=== PATIENT | female | born 1975 | race Caucasian/White ===

== ENCOUNTER → 2021-03-28 04:57 | Outpatient (CLI) | payer OTHER, SELFPAY ==
[2021-03-28 18:47] LABS: SARS-CoV-2 RNA PCR Negative
== END ==
PROVIDERS: PCP Family Medicine; Visit Provider Obstetrics & Gynecology Gynecology
DX: Z01.812 Encounter for preprocedural laboratory examination (principal); Z20.822 Contact with and (suspected) exposure to COVID-19
CPT/HCPCS: C9803; U0003; U0005

== ENCOUNTER 2021-03-31 01:12 | Day surgery (SDC) | payer OTHER, SELFPAY ==
[2021-03-18 13:13] VITALS: BMI 26.6
--- NOTE | 2021-03-28 16:05 | WPDANESEPPF ---
Anes - Initial Pre Proc Eval Procedure: Operation Date: 03/31/21 10:00 Proposed Procedures p Hysteroscopy, Dilation and Curettage - Hawa Dunne MD Date/Time: 03/28/21 16:05 Surgeon: Hawa Dunne MD Pre Op Diagnosis: abn uterine bleeding Patient Data Age: 46 Gender: F Height: 1.65 m Weight: 72.57 kg Allergies Allergy/AdvReac Type Severity Reaction Status Date / Time codeine Allergy Mild Nausea Verified 03/31/21 09:09 Sulfa (Sulfonamide Allergy Mild Unknown Verified 03/31/21 09:09 Antibiotics) Home Medications Medication Instructions Recorded Confirmed Type Lactobacillus acidophilus 10,000 mmu cells PO DAILY 03/18/21 03/18/21 History [Probiotic] ergocalciferol (vitamin D2) 1,250 mcg PO [id number] 03/18/21 03/18/21 History [Vitamin D2] fiber 1 tablet PO DAILY 03/18/21 03/18/21 History rxczuaoajayy-reeb-oyegn acid 1 tablet PO DAILY 03/18/21 03/18/21 History [Centrum Complete] Patient hx anesthesia problems: none Family hx anesthesia problems: none [facility] Past Medical History Medical History (Updated 03/31/21 @ 07:10 by Hawa Dunne MD) Abnormal uterine bleeding Back pain Elevated cholesterol Migraine (normal spontaneous vaginal delivery) x2 Thyroid nodule biopsy 2014 [facility] Social History Social History Smoking status: Never smoker Alcohol intake: never Substance use: never Substance use type: does not use Living arrangements: alone Spiritual care concerns: No Anes - Eval Final PreProcedure Day of Procedure 03/28/21 16:05 Patient weight: overweight Heart: regular rate and rhythm Lungs: clear to auscultation and normal air movement Airway: Mallampati scale class II Neurological: alert and oriented Last oral intake: >/= 8 hours ASA classification: II Emergent: no Anesthetic plan: proceed Anesthesia type and monitoring: general GIVS and LMA Informed Consent: The patient's anesthetic plan and its attendant risks and benefits were discussed with the patient/family/POA. Questions were solicited and answers provided to the satisfaction of the patient/family/POA.
--- NOTE | 2021-03-31 07:07 | P.HP_ITS ---
History of Present Illness History of Present Illness Consent: Risks, benefits, and alternatives have been discussed and questions answered. Patient agrees to proceed with procedure. Chief complaint: abn uterine bleeding Narrative: Hilda Pollack is a 46 year old female with new onset of irregular bleeding. Patient has been bleeding to on and off since December. Pelvic ultrasound was normal. It was recommended to proceed with workup of the endometrium. Risks of infection, bleeding, and perforation were reviewed. Patient agrees to proceed with hysteroscopy D&C. Review of Systems Review of Systems: Narrative: not repeated day of surgery; patient states no changes in status [facility] Past Medical History Medical History (Updated 03/31/21 @ 07:10 by Hawa Dunne MD) Abnormal uterine bleeding Back pain Elevated cholesterol Migraine (normal spontaneous vaginal delivery) x2 Thyroid nodule biopsy 2014 [facility] Social History Social History Smoking status: Never smoker Alcohol intake: never Substance use: never Substance use type: does not use Living arrangements: alone Spiritual care concerns: No Meds Home Medications and Allergies Home Medications Medication Instructions Recorded Confirmed Type Lactobacillus acidophilus 10,000 mmu cells PO DAILY 03/18/21 03/18/21 History [Probiotic] ergocalciferol (vitamin D2) 1,250 mcg PO [id number] 03/18/21 03/18/21 History [Vitamin D2] fiber 1 tablet PO DAILY 03/18/21 03/18/21 History hhmwwjtafiee-jreo-uszqw acid 1 tablet PO DAILY 03/18/21 03/18/21 History [Centrum Complete] Allergies Allergy/AdvReac Type Severity Reaction Status Date / Time codeine Allergy Mild Nausea Unverified 03/18/21 13:11 Sulfa (Sulfonamide Allergy Mild Unknown Unverified 03/18/21 13:11 Antibiotics) Exam : External Female Exam: normal external appearance Speculum Exam - Vagina: normal appearance of the vagina Speculum Exam - Cervix: normal appearance of the cervix Bimanual exam- vagina & uterus: normal bimanual exam and uterine size normal Bimanual Exam- Adnexa, other: normal adnexae Assessment and Plan Assessment and plan (1) Menorrhagia: Code(s): N92.0 - Excessive and frequent menstruation with regular cycle Status: Acute Assessment and Plan: Plan is to proceed with hysteroscopy D&C.
--- NOTE | 2021-03-31 07:07 | WPDHPUPDATE1 ---
History and Physical Update Update Date/Time: 03/31/21 07:07 History and Physical has been reviewed, including an updated exam of the patient. There are NO changes in the patient's condition. Risks, benefits, and alternatives have been discussed and questions answered. Patient agrees to proceed with procedure.
[2021-03-31 09:09] VITALS: BP 100/40; PULSE 70; RESP 14; TEMP 36.3; O2SAT 100; BMI 26.4
[2021-03-31] MEDS: ACETAMINOPHEN 500 MG TABLET 1000 MG PO (09:18)
[2021-03-31] MEDS: LACTATED RINGERS 1,000 ML 30 ML IV CONT (09:18)
--- NOTE | 2021-03-31 10:25 | W.PM.PROC2 ---
Procedure Note - Detailed Date of Procedure 03/31/21 Pre-op Diagnosis abn uterine bleeding Post-op Diagnosis same Procedure Performed D and C hysteroscopy with MyoSure resection of polyp and thickened tissue Surgeon Hawa Dunne MD Anesthesia MAC and local Findings Uterus sounds to 8cm; there is a generalized thickened appearance to the endometrium; there is a large polyp on the right sidewall Description of Procedure The patient was taken to the operating room and placed under anesthesia in the dorsal lithotomy position. She is prepped and draped in the usual sterile fashion. [place] speculum was placed in the vagina and the cervix is grasped on the anterior lip with a tenaculum. The cervix was injected with 1% lidocaine in each quadrant. The uterus is sounded to 8cm. The cervix is serially dilated with [place]. The diagnostic hysteroscope was placed with the stated findings. Due to the difficulty visualizing decision was made to proceed with MyoSure resection as the endometrium was very thickened and it is hard to visualize. The MyoSure device is used to directly removed the thickened endometrium as the thickened endometrium is removed a large polyp was noted on the right fundus. This was removed in its entirety. The MyoSure device is removed and the medium sharp curette is used to sharply curette the remainder of the endometrium. Large amounts material art obtained consistent with the visual appearance. All instruments are removed. Sponge, needle, and instrument counts are correct per the OR staff. The patient is awakened from anesthesia and taken to the recovery room in stable condition. Estimated Blood Loss 5 Drains No Packing No Pathology yes (Endometrial shavings and curettings) Complications No immediate complications Condition stable Disposition PACU
[2021-03-31 10:30] VITALS: BP 105/50; PULSE 78; RESP 14; O2SAT 100
[2021-03-31 11:00] VITALS: BP 106/51; PULSE 69; RESP 14; O2SAT 100
[2021-03-31 11:30] VITALS: BP 106/61; PULSE 72; RESP 16
== END 2021-03-31 11:45 | disposition home or self-care (01) ==
PROVIDERS: PCP Family Medicine; Visit Provider Obstetrics & Gynecology Gynecology
PROC: 0U5B8ZZ Destruction of Endometrium, Via Natural or Artificial Opening Endoscopic (ICD-10-PCS; CPT 58563; principal; 2021-03-31 10:00)
DX: N92.0 Excessive and frequent menstruation with regular cycle (principal); N84.0 Polyp of corpus uteri
CPT/HCPCS: 58558; 88305; A9270; J1100; J1885; J2250; J2405; J2704; J3010; J7030; J7120

== ENCOUNTER 2021-04-06 18:39 | Emergency (ER) | payer OTHER, SELFPAY ==
--- NOTE | ~2021-04-06 | XR_ITS ---
EXAMINATION: XR wrist RT min 3V DATE: 04/06/2021 19:02 INDICATION: Right wrist pain. TECHNIQUE: 4 views of right wrist were obtained. COMPARISON: None. FINDINGS: Bone alignment is normal. No fracture. Joint spaces are well maintained. IMPRESSION: 1. Normal right wrist. Reviewed, dictated and finalized at location A. IMPRESSION: 1. Normal right wrist.
[2021-04-06 18:48] VITALS: BP 93/43; PULSE 80; RESP 16; TEMP 36.7; O2SAT 99
--- NOTE | 2021-04-06 19:01 | ED.GENADULT ---
HPI - General Adult General Chief complaint: Extremity Problem,Nontraumatic Stated complaint: Right wrist pain Source: patient Mode of arrival: ambulatory Limitations: no limitations History of Present Illness HPI narrative: Patient presents for evaluation of right wrist pain for the last 5 days. She cannot identify any precipitating cause or injury. She was driving when she felt a sharp twinge of pain in the lateral aspect of the right wrist. She states the pain has been constant since that time. She has a dull aching pain in the lateral aspect of the right wrist with intermittent episodes of sharp pain shooting from the right wrist to the right elbow. She states that pronation and supination causes worsening of the pain. She is able to perform full range of motion but states that is quite painful. She states she self diagnosed tendinitis in the third digit of the left hand. Reports some swelling in the affected wrist. She is right-hand dominant. She tried taking [id number]-mnt-nvssdzj NSAIDs for pain which seemed to help somewhat. She has some numbness and tingling in the fourth and fifth digit of the right hand. She believes her mother has a history of rheumatoid arthritis. Related Data Home Medications Medication Instructions Recorded Confirmed Lactobacillus acidophilus 10,000 mmu cells PO DAILY 03/18/21 04/06/21 [Probiotic] ergocalciferol (vitamin D2) 1,250 mcg PO WEEKLY 03/18/21 04/06/21 [Vitamin D2] fiber 1 tablet PO DAILY 03/18/21 04/06/21 cfwnonhhvlpj-rvsh-zyqzn acid 1 tablet PO DAILY 03/18/21 04/06/21 [Centrum Complete] ferrous sulfate [FeroSul] 325 mg PO DAILY 04/06/21 04/06/21 Allergies Allergy/AdvReac Type Severity Reaction Status Date / Time codeine Allergy Mild Nausea Verified 04/06/21 18:56 Sulfa (Sulfonamide Allergy Mild Unknown Verified 04/06/21 18:56 Antibiotics) Review of Systems Review of Systems: Narrative: CONSTITUTIONAL: Denies fever, chills, or sweats. EYES: Denies visual changes, redness, or discharge. ENT: Denies rhinorrhea, congestion, sore throat, or otalgia. CARDIOVASCULAR: Denies chest pain, palpitations, or edema. RESPIRATORY: Denies cough or dyspnea. GASTROINTESTINAL: Denies abdominal pain, nausea, vomiting, or diarrhea. GENITOURINARY: Denies dysuria or hematuria. SKIN: Denies rash or itching. MUSCULOSKELETAL: Reports pain in the right wrist, shooting into the right elbow NEUROLOGIC: Reports numbness and tingling in the fourth and fifth digits of the right hand. Denies headache, dizziness, or weakness. PSYCHIATRIC: Denies anxiety or depression. [facility] Past Medical History Medical History (Updated 04/06/21 @ 19:17 by AMAYA Cano, ) Abnormal uterine bleeding Back pain Elevated cholesterol Migraine (normal spontaneous vaginal delivery) x2 Thyroid nodule biopsy 2014 [facility] Surgical History Surgical History (Updated 04/06/21 @ 19:03 by AMAYA Cano, ) H/O removal of cyst Family History Family History (Updated 04/06/21 @ 19:04 by AMAYA Cano, ) Father Diabetes mellitus Mother Diabetes mellitus Social History Social History Smoking status: Never smoker Alcohol intake: never Substance use: never Substance use type: does not use Living arrangements: alone Gender identity (if verbalized by the patient): Female Spiritual care concerns: No Exam Narrative: Exam Narrative: GENERAL: Well-appearing, well-nourished, and in no acute distress. HEAD: Normocephalic, atraumatic. EYES: PERRLA and EOMI. ENT: Nares clear, no rhinorrhea or epistaxis. Mucous membranes moist. Oropharynx without tonsillar hypertrophy exudate or other lesions. Bilateral TMs pearly bermudez nonbulging NECK: Supple. No adenopathy or masses. No carotid bruits or JVD CHEST: Clear to auscultation. No respiratory distress. No wheezes rales or rhonchi HEART: Regular rate and rhythm.
== END 2021-04-06 19:25 | disposition home or self-care (01) ==
PROVIDERS: Emergency Provider Nurse Practitioner; PCP Family Medicine
DX: M77.8 Other enthesopathies, not elsewhere classified (principal); E78.00 Pure hypercholesterolemia, unspecified
CPT/HCPCS: 73110; 99213; G0463

== ENCOUNTER 2022-07-22 12:38 | Emergency (ER) | payer OTHER, SELFPAY ==
[2022-07-22 12:54] VITALS: PULSE 89; RESP 18; TEMP 37.2; O2SAT 100
--- NOTE | 2022-07-22 13:14 | ED.URI ---
HPI - URI/Sore Throat General Chief Complaint: Upper Respiratory Infection Stated Complaint: Sore Throat Time Seen by Provider: 07/22/22 13:14 History of Present Illness HPI Narrative: 47-year-old female presented for complaint of sore throat for 3 days. Endorses pain with swallowing radiating up to ears. She denies difficulty swallowing her secretions. She denies headache, nausea, vomiting, fevers or chills. She endorses sick contacts have had sore throats over the past 2 weeks. She is taking ibuprofen for symptoms. Related Data Home Medications Medication Instructions Recorded Confirmed Lactobacillus acidophilus 10 10,000 mmu cells PO DAILY 03/18/21 07/22/22 billion cell capsule (Probiotic) ergocalciferol (vitamin D2) 1,250 1,250 mcg PO WEEKLY 03/18/21 07/22/22 mcg (50,000 unit) capsule (Vitamin D2) fiber 1 tablet PO DAILY 03/18/21 07/22/22 multivitamin-ferrous 1 tablet PO DAILY 03/18/21 07/22/22 fumarate-folic acid 18 mg-400 mcg tablet (Centrum Complete) ferrous sulfate 325 mg (65 mg 325 mg PO DAILY 04/06/21 07/22/22 iron) tablet (FeroSul) Allergies Allergy/AdvReac Type Severity Reaction Status Date / Time codeine Allergy Mild Nausea Verified 07/22/22 12:43 Sulfa (Sulfonamide Allergy Mild Unknown Verified 07/22/22 12:43 Antibiotics) Review of Systems Review of Systems: CONSTITUTIONAL: Denies body aches, fever, chills, or sweats. EYES: Denies visual changes, redness, or discharge. ENT: Denies rhinorrhea, congestion, or otalgia. CARDIOVASCULAR: Denies chest pain, palpitations, or edema. RESPIRATORY: Denies dyspnea. GASTROINTESTINAL: Denies abdominal pain, nausea, vomiting, or diarrhea. SKIN: Denies rash, or wounds. MUSCULOSKELETAL: Denies back pain, joint pain, or myalgia. NEUROLOGIC: Denies headache PMF Past Medical History Medical History Abnormal uterine bleeding Back pain Elevated cholesterol Migraine (normal spontaneous vaginal delivery) x2 Thyroid nodule biopsy 2014 [facility] Surgical History Surgical History H/O removal of cyst Family History Family History Father Diabetes mellitus Mother Diabetes mellitus Social History Social History Smoking status: Never smoker Alcohol intake: never Substance use: never Substance use type: does not use Gender identity (if verbalized by the patient): Female Spiritual care concerns: No Exam Narrative: GENERAL: Ill-appearing, nontoxic EYES: conjunctivae clear ENT: Mucous membranes moist. TMs pearly bermudez with normal light reflex bilaterally; no tragal tenderness. Oropharynx erythematous without lesions.No drooling, no hoarseness, no trismus, uvula midline. No tripod positioning, hot potato voice, or soft palate swelling. NECK: Supple. anterior cervical lymphadenopathy CHEST: Clear to auscultation, breath sounds equal. HEART: Regular rate and rhythm. No murmur heard. SKIN: Warm, dry, no rash. Course Course Emergency Course: Patient is aware of diagnosis, understands and agrees to treatment plan. Anticipatory guidance given. Patient agrees to follow-up as directed and is aware of reasons to seek care at the emergency department. Portions of this record may have been created with voice recognition software Level of Care: Express Care Visit Vital Signs Vital signs: Vital Signs Temperature 98.9 F 07/22/22 12:54 Pulse Rate 89 07/22/22 12:54 Respiratory Rate 18 07/22/22 12:54 Pulse Oximetry 100 07/22/22 12:54 Oxygen Delivery Room Air 07/22/22 12:54 Temperature 98.9 F 07/22/22 12:54 Pulse Rate 89 07/22/22 12:54 Respiratory Rate 18 07/22/22 12:54 Pulse Oximetry 100 07/22/22 12:54 Oxygen Delivery Room Air 07/22/22 12:54 MDM
== END 2022-07-22 13:51 | disposition home or self-care (01) ==
PROVIDERS: Emergency Provider Nurse Practitioner Family; PCP Family Medicine
DX: J02.9 Acute pharyngitis, unspecified (principal); Z20.822 Contact with and (suspected) exposure to COVID-19; E78.00 Pure hypercholesterolemia, unspecified
CPT/HCPCS: 87081; 87426; 87804; 87880; 99213; C9803; G0463

== ENCOUNTER 2023-04-01 18:49 | Emergency (ER) | payer OTHER, SELFPAY ==
--- NOTE | ~2023-04-01 | XR_ITS ---
EXAM: XR knee LT min 4V DATE: 04/01/2023 19:13 HISTORY: injury, pain medial left knee . COMPARISON: None available. FINDINGS: Normal mineralization. No fracture or dislocation. No lytic or blastic lesion. Joint space s are maintained. No erosion or periosteal change. Soft tissues within normal limits. IMPRESSION: No acute osseous finding in the left knee. Reviewed, dictated and finalized at location K.
--- NOTE | 2023-04-01 18:51 | ED.LOWEXIN ---
HPI - Extremity Injury (Lower) General Chief Complaint: Extremity Injury, Lower Stated Complaint: Injured left knee Time Seen by Provider: 04/01/23 18:51 Source: patient Mode of arrival: ambulatory Limitations: no limitations History of Present Illness HPI Narrative: Hilda is a 48-year-old female patient presenting to clinic today with complaints of left knee pain/injury. She reports she was climbing a metal ladder at [employer] 2 days ago and hit the left medial side of her knee. She reports pain with bending and extending her left knee as well as walking. Related Data Home Medications Medication Instructions Recorded Confirmed Lactobacillus acidophilus 10 10,000 mmu cells PO DAILY 03/18/21 04/01/23 billion cell capsule (Probiotic) ergocalciferol (vitamin D2) 1,250 1,250 mcg PO WEEKLY 03/18/21 04/01/23 mcg (50,000 unit) capsule (Vitamin D2) fiber 1 tablet PO DAILY 03/18/21 04/01/23 multivitamin-ferrous 1 tablet PO DAILY 03/18/21 04/01/23 fumarate-folic acid 18 mg-400 mcg tablet (Centrum Complete) ferrous sulfate 325 mg (65 mg 325 mg PO DAILY 04/06/21 04/01/23 iron) tablet (FeroSul) semaglutide 0.25 mg or 0.5 mg (2 0.5 mg subcut WEEKLY 04/01/23 04/01/23 mg/1.5 mL) subcutaneous pen injector Allergies Allergy/AdvReac Type Severity Reaction Status Date / Time codeine Allergy Mild Nausea Verified 04/01/23 18:59 Sulfa (Sulfonamide Allergy Unknown Unknown Verified 04/01/23 18:59 Antibiotics) Review of Systems Review of Systems: Pertinent positives per HPI. Patient denies any fever, chills, rash, headache, visual changes, dizziness, cough, runny nose, sore throat, shortness of breath, chest pain, palpitations, nausea, vomiting, diarrhea, constipation, abdominal pain, or any urinary issues. [facility] Past Medical History Medical History Abnormal uterine bleeding Back pain Elevated cholesterol Migraine (normal spontaneous vaginal delivery) x2 Thyroid nodule biopsy 2014 [facility] Surgical History Surgical History H/O removal of cyst Family History Family History Father Diabetes mellitus Mother Diabetes mellitus Social History Social History Smoking status: Never smoker Alcohol intake: never Substance use: never Substance use type: does not use Living arrangements: alone Gender identity (if verbalized by the patient): Female Spiritual care concerns: No Comments At the time of my signature, I reviewed and agree with the nursing past medical, surgical, social, and family history. There is no relevant family history pertinent to the patient complaint. Exam Narrative: General: Well-developed, well nourished, in no apparent distress Head: Normocephalic, atraumatic. Cardio: Regular rate and rhythm, s1 and s2 normal, no murmur appreciated. Resp: Clear to auscultation bilaterally, no rhonchi, rales, wheezing or rubs. Musculoskeletal: No deformity, tender to palpation over the medial aspect of the left knee, pain with flexion and extension of the left knee, no crepitus, grossly normal range of motion, muscle strength strong and equal, peripheral pulse strong, 1+ pitting edema in bilateral lower extremities, no cyanosis, normal gait and station Course Course Emergency Course: Portions of this record may have been created with voice recognition software. Level of Care: Express Care Visit Vital Signs Vital signs: Vital signs reviewed MDM - Extremity Injury (Lower) MDM Narrative Medical decision making narrative: At the time of visit patient is resting comfortably on the exam table. X-ray of the left knee was performed and is negative for any fracture or malalignment. I suspect the patient has left media
[2023-04-01 18:56] VITALS: BP 115/50; PULSE 92; RESP 16; TEMP 36.7; O2SAT 100
== END 2023-04-01 19:57 | disposition home or self-care (01) ==
PROVIDERS: Emergency Provider Nurse Practitioner Family; PCP Family Medicine
DX: M25.562 Pain in left knee (principal); E78.00 Pure hypercholesterolemia, unspecified
CPT/HCPCS: 73564; 99213; G0463

== ENCOUNTER 2024-10-30 00:18 | Day surgery (SDC) | payer OTHER, SELFPAY ==
--- NOTE | 2024-10-25 14:33 | PC.NURSE ---
Report to the Outpatient Waiting Room, entrance under the green pavilion located off [facility], at time 0600 on date 10/30/24. Planned Procedure Time: 0730.? Time changes happen often and if your time is changed the preop area will call you the afternoon before. - You and your visitor will be asked to self-screen and do not enter if you have any COVID symptoms. Please call surgeon if you need to reschedule. - A mask is optional within the hospital at this time. Patients may have clear liquids (water, carbonated beverages, clear teas, apple juice) until 3 hours prior to surgery with a maximum of 20 ounces. 0430 - No food from midnight until time of surgery and no smoking. This includes no chewing gum, candy or mints. - Infants may have breast milk until 4 hours before surgery, formula 6 hours prior to surgery. - Children will be allowed to drink immediately following surgery.? If applicable, please bring a bottle or sippy cup to assist with drinking. Juice, water, soda, and popsicles are readily available.? For infants on formula, please bring formula the day of surgery.? Pacifiers are allowed. Take only the following medications with a SIP of water on the morning of surgery: None DO NOT STOP ANY OF YOUR OTHER PRESCRIPTION MEDICATIONS PRIOR TO SURGERY EXCEPT THE FOLLOWING Medications to discontinue per physician Vitamins & Supplements hold for 3 days prior, last dose 10/27/24, Patient to ask Dr. Dunne regarding when to stop Meloxicam and Humira. (Last dose of Humira 10/24/24) Please no make-up, nail urdu, hairspray, perfume, deodorant, or body powder the day of surgery.? No jewelry (including any body piercings) or valuables the day of surgery, leave them at home.? Please take a shower or bath the night before, or the morning of, surgery with an antibacterial soap.? Wear comfortable, loose fitting clothing.? Children are encouraged to wear pajamas. - Jewelry must be removed prior to entering the operating room.? Rings and piercings that are not removed may be cut off. - The hospital will not accept responsibility for valuables.? - Please leave all valuables, including medications, at home the day of surgery. If you are going home after surgery, a licensed public transit bus driver must drive you home.? - NO public transportation without another adult if you receive anesthesia. - We recommend that an adult stay with you for 24 hours following discharge. - We also recommend that you do not drive, make important decision, drink alcoholic beverages, or take any drugs that were not prescribed by your health care provider for at least 24 hours after your discharge time. For Pediatric surgeries, we recommend two adults accompany the child home. Follow any additional instructions given to you from your surgeon. Telephone instructions given to Patient- Hilda Pollack and asked if any additional questions and then verbalized understanding. Patient advised to call surgeon office or pre surgery nurse liaison [phone] if any additional questions.
[2024-10-25 14:40] VITALS: BMI 29.9
--- NOTE | 2024-10-30 06:37 | P.PNAN_ITS ---
Anes - Initial Pre Proc Eval Procedure: Operation Date: 10/30/24 07:30 Proposed Procedures p Hysteroscopy Dilation and Curettage - Hawa Dunne MD Date/Time: 10/30/24 06:37 Surgeon: aHwa Dunne MD Pre Op Diagnosis: abnormal uterine bleeding Patient Data Age: 49 Gender: F Height: 1.65 m Weight: 81.8 kg Allergies Allergy/AdvReac Type Severity Reaction Status Date / Time codeine Allergy Mild Nausea Verified 10/25/24 14:21 Sulfa (Sulfonamide Allergy Unknown Unknown Verified 10/25/24 14:21 Antibiotics) Home Medications ?Medication ?Instructions ?Recorded ?Confirmed ?Type Lactobacillus acidophilus 10 10,000 mmu cells PO DAILY 03/18/21 10/25/24 History billion cell capsule (Probiotic) ergocalciferol (vitamin D2) 1,250 1,250 mcg PO .COMPLEX 03/18/21 10/25/24 History mcg (50,000 unit) capsule (Vitamin D2) fiber 1 tablet PO DAILY 03/18/21 10/25/24 History multivitamin-ferrous 1 tablet PO DAILY 03/18/21 10/25/24 History fumarate-folic acid 18 mg-400 mcg tablet (Centrum Complete) adalimumab 40 mg/0.4 mL 40 mg subcut .COMPLEX 10/25/24 10/25/24 History subcutaneous pen kit (Humira(CF) Pen) magnesium glycinate 100 mg (as 100 mg PO DAILY 10/25/24 10/25/24 History glycinate) tablet (Mag Glycinate) meloxicam 15 mg tablet 15 mg PO DAILY 10/25/24 10/25/24 History Patient hx anesthesia problems: none Family hx anesthesia problems: none Results Review: All pre-operative results and documents have been reviewed as part of the pre- operative evaluation. [facility] Past Medical History Medical History Abnormal uterine bleeding Back pain Elevated cholesterol Migraine (normal spontaneous vaginal delivery) x2 Thyroid nodule biopsy 2015 [facility] Surgical History Surgical History H/O removal of cyst Family History Family History Father Diabetes mellitus Mother Diabetes mellitus Social History Social History Smoking status: Never smoker Alcohol intake: never Substance use: never Substance use type: does not use Living arrangements: alone Gender identity (if verbalized by the patient): Female Spiritual care concerns: No Anes - Eval Final PreProcedure Day of Procedure 10/30/24 06:37 Patient weight: obese Heart: regular rate and rhythm Lungs: clear to auscultation Airway: Mallampati scale class II Neurological: alert and oriented Last oral intake: >/= 8 hours ASA classification: II Emergent: no Anesthetic plan: proceed Anesthesia type and monitoring: general GIVS and standard monitoring Results Review: All pre-operative results and documents have been reviewed as part of the pre- operative evaluation. Informed Consent: The patient's anesthetic plan and its attendant risks and benefits were discussed with the patient/family/POA. Questions were solicited and answers provided to the satisfaction of the patient/family/POA.
[2024-10-30 07:04] VITALS: BP 117/52; PULSE 77; TEMP 36.9; O2SAT 100; BMI 31.4
[2024-10-30] MEDS: ACETAMINOPHEN 500 MG TABLET 1000 MG PO (07:07)
[2024-10-30] MEDS: LACTATED RINGERS 1,000 ML 30 ML IV CONT (07:07)
[2024-10-30 07:08] LABS: BEDSIDEPREGUCG Negative (Negative)
--- NOTE | 2024-10-30 07:12 | P.HP_ITS ---
History of Present Illness History of Present Illness Consent: Risks, benefits, and alternatives have been discussed and questions answered. Patient agrees to proceed with procedure. Chief complaint: abnormal uterine bleeding Narrative: Hilda Pollack is a 49 year old female with irregular bleeding and occasional spotting after intercourse. Patient with a history endometrial polyps in 2020. Was recommended to undergo D&C hysteroscopy. Risks of infection, bleeding, perforation, and possible pathology are reviewed. Patient voices understanding and agrees to proceed. Review of Systems Review of Systems: not repeated day of surgery; patient states no changes in status PMFSH Past Medical History Medical History (Updated 10/30/24 @ 07:15 by Hawa Dunne MD) (normal spontaneous vaginal delivery) x2 Thyroid nodule biopsy 2014 [facility] Migraine Elevated cholesterol Surgical History Surgical History (Updated 10/30/24 @ 07:14 by Hawa Dunne MD) History of surgery on wrist X2 History of hysteroscopy 2020 with polyps H/O removal of cyst Family History Family History Father Diabetes mellitus Mother Diabetes mellitus Social History Social History Smoking status: Never smoker Alcohol intake: never Substance use: never Substance use type: does not use Living arrangements: alone Gender identity (if verbalized by the patient): Female Spiritual care concerns: No Meds Home Medications and Allergies Home Medications ?Medication ?Instructions ?Recorded ?Confirmed ?Type Lactobacillus acidophilus 10 10,000 mmu cells PO DAILY 03/18/21 10/25/24 History billion cell capsule (Probiotic) ergocalciferol (vitamin D2) 1,250 1,250 mcg PO .COMPLEX 03/18/21 10/25/24 History mcg (50,000 unit) capsule (Vitamin D2) fiber 1 tablet PO DAILY 03/18/21 10/25/24 History multivitamin-ferrous 1 tablet PO DAILY 03/18/21 10/25/24 History fumarate-folic acid 18 mg-400 mcg tablet (Centrum Complete) adalimumab 40 mg/0.4 mL 40 mg subcut .COMPLEX 10/25/24 10/25/24 History subcutaneous pen kit (Humira(CF) Pen) magnesium glycinate 100 mg (as 100 mg PO DAILY 10/25/24 10/25/24 History glycinate) tablet (Mag Glycinate) meloxicam 15 mg tablet 15 mg PO DAILY 10/25/24 10/25/24 History Allergies Allergy/AdvReac Type Severity Reaction Status Date / Time codeine Allergy Mild Nausea Verified 10/30/24 07:03 Sulfa (Sulfonamide Allergy Unknown Unknown Verified 10/30/24 07:03 Antibiotics) Vital Signs Vital Signs - 24 hr 10/30/24 07:04 Temperature 98.5 F Pulse Rate 77 Blood Pressure 117/52 L Pulse Oximetry 100 Oxygen Delivery Room Air Exam Const: General: healthy appearing and alert Orientation/consciousness: patient oriented x3 Resp: Effort & Inspection: normal respiratory effort GI: GI Palp: Yes Soft to palpation, No Tenderness to palpation present (GI) an d No Palpable mass present : External Female Exam: normal external appearance Speculum Exam - Vagina: normal appearance of the vagina and normal vaginal discharge Speculum Exam - Cervix: normal appearance of the cervix Bimanual exam- vagina & uterus: uterine size normal and consistency normal Bimanual Exam- Adnexa, other: normal adnexae and No adnexal tenderness Neuro: General: patient oriented x3 Assessment and Plan Assessment and plan (1) Menometrorrhagia: Code(s): N92.1 - Excessive and frequent menstruation with irregular cycle Status: Acute Assessment and Plan: Plan to proceed with D&C hysteroscopy
--- NOTE | 2024-10-30 07:12 | WPDHPUPDATE1 ---
History and Physical Update Update Date/Time: 10/30/24 07:12 History and Physical has been reviewed, including an updated exam of the patient. There are NO changes in the patient's condition. Risks, benefits, and alternatives have been discussed and questions answered. Patient agrees to proceed with procedure.
[2024-10-30 07:38] VITALS: BP 99/42; PULSE 69; RESP 20; O2SAT 97
--- NOTE | 2024-10-30 07:38 | W.PM.PROC2 ---
Procedure Note - Detailed Date of Procedure 10/30/24 Pre-op Diagnosis Menometrorrhagia Post-op Diagnosis Same Procedure Performed D&C hysteroscopy Surgeon Hawa Dunne MD Anesthesia MAC Findings Uterus sounds to 8cm and appears grossly. Description of Procedure The patient is taken the operating room and placed under anesthesia in the dorsal lithotomy position. She was prepped and draped in the usual sterile fashion. [place] speculum was placed in the vagina and the cervix grasped on the anterior lip with a tenaculum. Uterus is sounded to 8cm. The diagnostic hysteroscope was placed and with no abnormalities noted it is removed. The sharp OO curette is used to curette the endometrium until a good uterine cry was noted in all areas. All instruments are removed. Patient was awakened from anesthesia and taken to recovery in stable condition. Sponge, needle, and instrument counts are correct per the OR staff. Estimated Blood Loss 5 Drains No Packing No Pathology Yes (Endometrial curetting) Complications No immediate complications Condition Stable Disposition PACU
[2024-10-30 08:00] VITALS: BP 110/55; PULSE 62; RESP 20
[2024-10-30 08:30] VITALS: BP 108/58; PULSE 70; RESP 20
[2024-10-30 08:45] VITALS: BP 108/58; PULSE 69; RESP 20
--- OUTSIDE RECORDS SUMMARY | 2024-11-02 11:07 | XMS_ITS | Continuity of Care Document ---
Author Organization [facility] Address [address] [place] [address] Phone Care Team Providers Care Construction Rigger Name Role Phone Eugene OD, Mahin Unavailable Unavailable Procedures Procedure Date Eye Exam & Treatment Refraction Eye Exam, New Patient Advance Directives Directive Yes / No Effective Date File Name No Information Encounters Encounter Description Practice Location Reason(s) For Visit Diagnoses Date Provider Providers Copied on Encounter [facility], [address] [place] [address] [address], [place], [place], [id number], tel:[phone] [facility] No Information Sep-1 4-201 0 Eugene OD Mahin. [address] , [address], [place], [address], [place]. tel:[phone] [facility], [address] [place] [address] [address], [place], [place], [id number], tel:[phone] [facility] [place] No Information Sep-0 8-200 9 Eugene OD Mahin. [address] , [address], [place], [address], [place]. tel:[phone] Family History Family Member Type Diagnosis Age At Onset No Information Payers Payer name Insurance type Covered alliance party ID Authoriza tibill(s) Medicaid [facility] [id number] Social History Type Description Quantity Date Captured [...]
--- OUTSIDE RECORDS SUMMARY | 2024-11-02 11:07 | XMS_ITS | Patient Health Summary ---
Author Organization [facility] Address [address] [place] [address] Care Team Providers Care Mortgage Processor Name Role Phone Etta Gaytan MD Primary Care Provider [phone] Note from [facility],non-owned Affiliates and Associated Physician Practices is amultiple site organization consisting of ambulatory clinics and hospital sitesin [place], [place] and [place]. This disclosure is being madepursuant to the Care Everywhere program and may not contain all information available regarding this patient. Last updated 18.[facility] Allergies * Codeine(Nausea and/or Vomiting) -Low Criticality * Methotrexate(REPLANTING MACHINE CREW Dysfunction) -High Criticality * Sulfa Drugs(Unknown) Medications * Be aware that medications may not be up to date on this document. Alwaysverify current medications with the patient. * vitamin D, ergocalciferol, (Drisdol) 1.25 MG (47860 UT) capsule(Started 05/26/2023) Take 1 (one) capsule by mouth every 14 days * docusate sodium (Colace) 100 MG capsule Take 1 (one) capsule by mouth once daily * multivitamin daily tablet Take 1 (one) tablet by mouth daily with food * folic acid (Folvite) 1 MG tablet(Started 02/08/2024) Take 1 (one) tablet by mouth once daily 4 refills by 02/07/2025 * meloxicam (Mobic) 15 MG tablet(Started 07/21/2024) Take 1 (one) tablet by mouth once daily 1 refill by 07/21/2025 * adalimumab (Humira, 2 Pen,) 40 MG/0.4ML injection(Started 09/13/2024) Inject 0.4 mL subcutaneously every 14 days 1 refill by 09/13/2025 Active Problems Problem Noted Date Diagnosed Date Hyperlipidemia 06/29/2023 06/29/2023 Iron deficiency anemia 06/29/2023 Thyroid nodule 06/29/2023 06/29/2023 Low back pain 12/28/2022 06/29/2023 Flexor tenosynovitis of finger 04/15/2022 0 06/29/2023 Social History Tobacco Use Types Packs/Day Years Used Date Smoking Tobacco: Never Smokeless Tobacco: Never Tobacco Cessation:Counseling Given: Not Answered Alcohol Use Standard Drinks/Week Comments Never 0 (1 standard drink = 0.6 oz pur e alcohol) PHQ-2 Answer Date Recorded Patient Health Questionnaire-2 Score 0 06/27/2024 Sex and Gender Information Value Date Recorded Sex Assigned at Not on file Gender Identity Not on file Sexual Orientation Not on file Last Filed Vital Signs Vital Sign Reading Time Taken Comments Blood Pressure 111/60 09/26/2024 3:22 PM PROGRESS CLERK Pulse 64 09/26/2024 3:22 PM PROGRESS CLERK Temperature 36.2 ??C (97.2 ??F) 09/26/2024 3:22 PM CS T Respiratory Rate 16 02/08/2024 2:49 PM CDT Oxygen Saturation 96% 06/27/2024 3:16 PM CDT Inhaled Oxygen Concentration - - Weight 82.1 kg (181 lb) 09/26/2024 3:22 PM PROGRESS CLERK Height 165.1 cm (5' 5 ) 09/26/2024 3:22 PM PROGRESS CLERK Body Mass Index 30.12 09/26/2024 3:22 PM PROGRESS CLERK Procedures * LAB RESULTS ORDER(Performed 09/25/2024) * LAB RESULTS ORDER(Performed 09/25/2024) * IMAGING/RADIOLOGY/XRAY RESULTS ORDER(Performed 09/01/2023) * LAB RESULTS ORDER(Performed 07/06/2023) * LAB RESULTS ORDER(Performed 07/06/2023) * LAB RESULTS ORDER(Performed 07/06/2023) * LAB RESULTS ORDER(Performed 07/06/2023) * LAB RESULTS ORDER(Performed 07/06/2023) * LAB RESULTS ORDER(Performed 07/06/2023) * LAB RESULTS ORDER(Performed 07/06/2023) * LAB RESULTS ORDER(Performed 07/06/2023) * LAB RESULTS ORDER(Performed 07/06/2023) * LAB RESULTS ORDER(Performed 07/06/2023) * LAB RESULTS ORDER(Performed 06/30/2023) Results * LAB RESULTS ORDER (09/25/2024) Only the most recent of13 resultswithin the time period is included. 09/25/2024 Narrative 09/25/2024 Ordered by an unspecified provider. Scanned Document LAB - THERAPEUTIC DR RYLAN MONITORING ORDERABLES * IMAGING RADIOLOGY XRAY RESULTS ORDER (09/01/2023) Anatomical Region Laterality Modality Other 09/01/2023 Narrative 09/01/2023 Ordered by an unspecified provider. Scanned Document IMAGING Care Teams Mortgage Processor Relationship Specialty Start Date End Date Etta Gaytan MD [address] [place] [id number] PCP - General Family Medicine 06/29/23
--- OUTSIDE RECORDS SUMMARY | 2024-11-02 11:07 | XMS_ITS | Data Portability ---
Author Organization [place] [employer], Main Office Address [address] [place] [address] Care Team Providers Care Area Director Of Home Health Sales Name Role Phone ROBBIN GAYTAN Primary Care Provider [phone] ROBBIN GAYTAN Referring Provider Assessment Encounter Date Assessment Date Assessment LastModified by Organization Details LastModified Time 05/06/2023 05/06/2023 Patient returns foot pain left. She has an about the 2nd toe and got good relief from the injection. Pain for the most part is gone she still got some stiffness. 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 If she gets returns and the pain persists will reinject her and get an MRI at that point discussed. [email or web address] Not available 05/06/2023 14:24:17 02/16/2024 02/16/2024 49-year-old female presents for evaluation of her left foot. She reports pain in the foot for about a year. She was previously seen by Dr. Andrea in April of 2023, diagnosed with synovitis, and received a cortisone injection into the 2nd toe MTP. She reports that significantly helped, but recently has started to wear off and she is developing significant pain again in the same location. She is also taking meloxicam. She denies any acute injury. Review of systems per patient questionnaire Physical exam: She is tenderness palpation over the 2nd metatarsal head. No tenderness in the webspace or over the other parts of the foot. She is sensation intact to light touch throughout, 2+ DP pulse. X-rays of the foot were reviewed, demonstrating no acute bony abnormality. She does have a longer 2nd metatarsal than the 1st She has metatarsal overload, and I would recommend continued conservative management and use of orthotics, particularly a well-padded insert for the balls of her foot. She inquired about getting a repeat injection. We discussed that I do not perform these injections but we can refer her to Dr. Ballard our spool sorter for evaluation. In the meantime, she can also use Voltaren or other topical anti-inflammatori es. She may follow-up with us as needed. 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 We talked about treatment options she had a shot of cortisone nearly a year ago which gave her excellent relief she would like to repeat this today therefore under sterile conditions I injected the patient's left 2nd metatarsal head near the MTP joint at the point of maximal tenderness through the plantar surface with 2 cc 0.5% bupivacaine and 10 mg of Kenalog. Patient tolerated the procedure well. We will see how this works. We talked about getting metatarsal pads [id number] versus seeing a spool sorter she was given Dr. Ballard's card today she can make an appointment with him to follow-up if necessary. Possibly a custom insert would help her as well. She will continue with other current conservative measures including [id number] anti-inflammatory medication versus meloxicam 15 mg daily which she has a prescription for. The patient does have history of rheumatologic disease and is on methotrexate sees a nurse recruiter as well. This may be playing into some of her inflammation also. She voiced understanding agrees above plan she will call for any further problems difficulties or questions. [email or web address] Not available 02/18/2024 16:09:59 Plan of Treatment Reminders Order Date Submit Date Provider Last Modified By Organization Details Last Modified Time Details Appointments Follow Up 2024 03:30P Sheri Beach NP Not available Not available Not available Lab lipid panel, serum 2023 024 [email or web address] [email or web address] [facility] (Lab), [address] [place], [address], 11/09/2023 17:34:47 vitamin D3, 25-hydrox y, serum [address] (Lab), [address] [place], [address], 11/09/2023 17:34:32 BMP, serum or plasma [address] (Lab), [address] [place], [address], 11/09/2023 17:35:09 TSH, serum or plasma [address] (Lab), [address] [place], [address], 11/09/2023 17:08:44 ferritin, serum or plasma [address] (Lab), [address] [place], [address], 11/09/2023 16:59:28 iron + total iron-bind ing capacity (TIBC), serum [address] (Lab), [address] [place], [address], 11/09/2023 17:06:35 CBC w/ auto diff [address] (Lab), [address] [place], [address], 11/09/2023 17:08:16 lipid panel, serum [email or web address] [place] [address] (Lab), [address] [place], [address], 05/09/2024 08:28:33 CBC w/ auto diff 2023 [email or web address] [place] [address] (Lab), [address] [place], [address], 05/09/2024 08:28:33 CMP, serum or plasma 2023 024 [email or web address] 77 [facility] (Lab), [address] [facility] [place], [address], 05/09/2024 08:28:33 Referral None recorded. Procedures injection /aspirati on joint/bur sa (PROC) 2023 024 In-Office Order, Internal Use Only DO Not Attach Compendium DO Not Attach Compendium, Do Not Delete/merge, [id number] 02/18/2024 15:23:16 Surgeries None recorded. Imaging None recorded. Medication Orders bupivacai ne HCl 0.5 % (5 mg/mL) injection solution 2023 024 [email or web address] [facility][id number], [address], [place], [place], [id number], 02/18/2024 16:05:04 Kenalog 10 mg/mL suspensio n for injection 2023 024 [id number] [place] [address] [facility][id number], [address], [place], [place], [id number], 06/21/2024 22:30:06 Ozempic 0.25 mg or 0.5 mg (2 mg/3 mL) subcutane ous pen injector 2023 024 CLEMENT [facility] #[id number], [address], [place], [place], [id number], 04/26/2024 16:42:14 Patient TargetsNo targets recorded. Patient InstructionsNo instructions recorded. Reason for Referral None Reported. Results Created Date Observation Date Name Description Value Unit Range Abnormal Flag Note LastModifiedBy Organization Detail LastModifiedTime 11/09/19 24 11/09/2023 CBC/C OMPLE TE BLD COUNT W/DIF F white blood cells 5.5 x10'3 /uL 4.2-10 .8 Not Available [facility] (Lab) [address] [place], [address], 11/09/2023 20:39:46 11/09/19 24 11/09/2023 CBC/C OMPLE TE BLD COUNT W/DIF F red blood cells 4.46 x10'6 /uL 3.80-5 .20 Not Available [facility] (Lab) [address] [place], [address], 11/09/2023 20:39:46 11/09/19 24 11/09/2023 CBC/C OMPLE TE BLD COUNT W/DIF F hemoglobin 12.5 g/dL 12.0-1 5.6 Not Available [facility] (Lab) [address] [place], [address], 11/09/2023 20:39:46 11/09/19 24 11/09/2023 CBC/C OMPLE TE BLD COUNT W/DIF F hematocrit 39.2 % 35.7-4 5.7 Not Available [facility] (Lab) [address] [place], [address], 11/09/2023 20:39:46 11/09/19 24 11/09/2023 CBC/C OMPLE TE BLD COUNT W/DIF F mean red cell volume 87.9 fL 82.0-9 9.0 Not Available [facility] (Lab) [address] [place], [address], 11/09/2023 20:39:46 11/09/19 24 11/09/2023 CBC/C OMPLE TE BLD COUNT W/DIF F mean red cell hemoglobin 28.0 pg 27.0-3 3.0 Not Available [facility] (Lab) [address] [place], [address], 11/09/2023 20:39:46 11/09/19 24 11/09/2023 CBC/C OMPLE TE BLD COUNT W/DIF F mean RBC HGB concentratio n 31.9 g/dL 31.0-3 6.0 Not Available [facility] (Lab) [address] [place], [address], 11/09/2023 20:39:46 11/09/19 24 11/09/2023 CBC/C OMPLE TE BLD COUNT W/DIF F red cell distribution width 13.0 % 11.8-1 5.5 Not Available [facility] (Lab) [address] [place], [address], 11/09/2023 20:39:46 11/09/19 24 11/09/2023 CBC/C OMPLE TE BLD COUNT W/DIF F platelets 310 x10'3 /uL 150-40 0 Not Available [facility] (Lab) [address] [place], [address], 11/09/2023 20:39:46 11/09/19 24 11/09/2023 CBC/C OMPLE TE BLD COUNT W/DIF F mean platelet volume 10.8 fL 9.0-12 .4 Not Available [facility] (Lab) [address] [place], [address], 11/09/2023 20:39:46 11/09/19 24 11/09/2023 CBC/C OMPLE TE BLD COUNT W/DIF F neutrophils 65.5 % 39.0-7 2.0 Not Available [facility] (Lab) [address] [place], [address], 11/09/2023 20:39:46 11/09/19 24 11/09/2023 CBC/C OMPLE TE BLD COUNT W/DIF F lymphocytes 23.9 % 16.0-4 7.0 Not Available [facility] (Lab) [address] [place], [address], 11/09/2023 20:39:46 11/09/19 24 11/09/2023 CBC/C OMPLE TE BLD COUNT W/DIF F monocytes 6.4 % 5.0-12 .0 Not Available [facility] (Lab) [address] [place], [address], 11/09/2023 20:39:46 11/09/19 24 11/09/2023 CBC/C OMPLE TE BLD COUNT W/DIF F eosinophils 3.3 % 1.0-7. 0 Not Available [facility] (Lab) [address] [place], [address], 11/09/2023 20:39:46 11/09/19 24 11/09/2023 CBC/C OMPLE TE BLD COUNT W/DIF F basophils 0.5 % 0.0-2. 0 Not Available [facility] (Lab) [address] [place], [address], 11/09/2023 20:39:46 11/09/19 24 11/09/2023 CBC/C OMPLE TE BLD COUNT W/DIF F immature granulocytes 0.4 % 0.00-0 .50 Not Available [facility] (Lab) [address] [place], [address], 11/09/2023 20:39:46 11/09/19 24 11/09/2023 CBC/C OMPLE TE BLD COUNT W/DIF F neutrophils, absolute count 3.58 x10'3 /uL 1.5-8. 0 Not Available [facility] (Lab) [address] [place], [address], 11/09/2023 20:39:46 11/09/19 24 11/09/2023 CBC/C OMPLE TE BLD COUNT W/DIF F lymphocytes, absolute count 1.31 x10'3 /uL 1.07-3 .43 Not Available [facility] (Lab) [address] [place], [address], 11/09/2023 20:39:46 11/09/19 24 11/09/2023 CBC/C OMPLE TE BLD COUNT W/DIF F monocytes, absolute count 0.35 x10'3 /uL 0.29-0 .99 Not Available [facility] (Lab) [address] [place], [address], 11/09/2023 20:39:46 11/09/19 24 11/09/2023 CBC/C OMPLE TE BLD COUNT W/DIF F eosinophils, absolute count 0.18 x10'3 /uL 0.02-0 .53 Not Available [facility] (Lab) [address] [place], [address], 11/09/2023 20:39:46 11/09/19 24 11/09/2023 CBC/C OMPLE TE BLD COUNT W/DIF F basophils, absolute count 0.03 x10'3 /uL 0.01-0 .08 Not Available [facility] (Lab) [address] [place], [address], 11/09/2023 20:39:46 11/09/19 24 11/09/2023 CBC/C OMPLE TE BLD COUNT W/DIF F immature granulocytes ,absolute 0.02 x10'3 /uL 0.00-0 .05 Not Available [facility] (Lab) [address] [place], [address], 11/09/2023 20:39:46 11/09/19 24 11/09/2023 CBC/C OMPLE TE BLD COUNT W/DIF F nucleated red blood cells 0.0 % -0 Not Available [facility] (Lab) [address] [place], [address], 11/09/2023 20:39:46 11/09/19 24 11/09/2023 CBC/C OMPLE TE BLD COUNT W/DIF F NRBC# 0.00 x10'3 /uL Not Available [facility] (Lab) [address] [place], [address], 11/09/2023 20:39:46 11/09/19 24 11/09/2023 IRON/ TIBC PANEL total iron binding capacity 443 mcg/d L 265-47 5 Not Available [facility] (Lab) [address] [place], [address], 11/09/2023 21:42:54 11/09/19 24 11/09/2023 IRON/ TIBC PANEL % transferrin saturation 11 % 20-55 low Not Available [facility] (Lab) [address] [place], [address], 11/09/2023 21:42:54 11/09/19 24 11/09/2023 IRON/ TIBC PANEL unsaturated iron bind capacity 395 mcg/d L 126-38 2 high Not Available [facility] (Lab) [address] [place], [address], 11/09/2023 21:42:54 11/09/19 24 11/09/2023 IRON/ TIBC PANEL iron 48 mcg/d L 42-175 Not Available [facility] (Lab) [address] [place], [address], 11/09/2023 21:42:54 11/09/19 24 11/09/2023 VITAM IN D 25-HY DROXY [id number] 57.6 NG/mL 30-100 Vitam in D Statu s: Defic ient: <20 ng/mL Insuf ficie nt: 20-29 ng/mL Suffi cient : 30-10 0 ng/mL Not Available [facility] (Lab) [address] [place], [address], 11/09/2023 21:36:10 11/09/19 24 11/09/2023 BASIC METAB OLIC PANEL sodium 139 mmol/ L 137-14 5 Not Available [facility] (Lab) [address] [place], [address], 11/09/2023 21:46:07 11/09/19 24 11/09/2023 BASIC METAB OLIC PANEL potassium 4.3 mmol/ L 3.5-5. 1 Not Available [facility] (Lab) [address] [place], [address], 11/09/2023 21:46:07 11/09/19 24 11/09/2023 BASIC METAB OLIC PANEL chloride 105 mmol/ L 98-107 Not Available [facility] (Lab) [address] [place], [address], 11/09/2023 21:46:07 11/09/19 24 11/09/2023 BASIC METAB OLIC PANEL carbon dioxide 28 mmol/ L 22-30 Not Available [facility] (Lab) [address] [place], [address], 11/09/2023 21:46:07 11/09/19 24 11/09/2023 BASIC METAB OLIC PANEL anion gap 10.3 mmol/ L 14-22 low Not Available [facility] (Lab) [address] [place], [address], 11/09/2023 21:46:07 11/09/19 24 11/09/2023 BASIC METAB OLIC PANEL glucose 97 mg/dL 70-99 Not Available [facility] (Lab) [address] [place], [address], 11/09/2023 21:46:07 11/09/19 24 11/09/2023 BASIC METAB OLIC PANEL BUN 21 mg/dL 8-19 high Not Available [facility] (Lab) [address] [place], [address], 11/09/2023 21:46:07 11/09/19 24 11/09/2023 BASIC METAB OLIC PANEL creatinine 0.59 mg/dL 0.66-1 .25 low Not Available [facility] (Lab) [address] [place], [address], 11/09/2023 21:46:07 11/09/19 24 11/09/2023 BASIC METAB OLIC PANEL GFR >60 Refer ence Range : [place] ge GFR Healt hy Adult : >60 mL/mi n/1.7 3 m2 Chron ic Kidne y Disea se: 15-60 mL/mi n/1.7 3 m2 Kidne y Failu re: <15/m L/min /1.73 m2 www.n iddk. nih.g ov The MDRD study equat ion has not been valid ated in child ann marie <18 years of age; pregn ant women ; the elder ly >85 years of age; or in some racia l or ethni c subgr oups, such as Hisoh nics. Outsi de the valid ated shannan eters , estim ated GFR is less accur ate, requi ring clini miesha judgm ent on a case- by-ca se basis . Clini miesha inter preta tion for other races and ages must be made by the clini mally. The MDRD study equat ion has not been valid ated for the evalu ation of serum creat inine relat ed to nutri mariana l statu s or medic ation usage . For perso ns <18 years of age, a pedia tric GFR calcu lator is avail able on the [facility] websi te: https ://gerhard dunham.ricardo rojas.o rg/pr ofess ional s/kdo qi/gf r_cal culat or Not Available [facility] (Lab) [address] [place], [address], 11/09/2023 21:46:07 11/09/19 24 11/09/2023 BASIC METAB OLIC PANEL calcium 10.0 mg/dL 8.4-10 .2 Not Available [facility] (Lab) [address] [place], [address], 11/09/2023 21:46:07 11/09/19 24 11/09/2023 LIPID PANEL cholesterol 236 mg/dL 140-19 9 high NIH TERESA NSUS RECOM MENDA TION FOR GABRIELA STERO L: ADULT CHILD LOW RISK: <200 <170 BORDE RLINE : <200- 239 ----- HIGH RISK: >240 >200 Not Available [facility] (Lab) [address] [place], [address], 11/09/2023 21:46:09 11/09/19 24 11/09/2023 LIPID PANEL triglyceride s 96 mg/dL 0-150 NIH TERESA NSUS REPOR T RECOM MENDA TION FOR TRIGL YCERI NIRMAL: ADULT CHILD LOW RISK: <150 ----- BODER LINE: 150-1 99 ----- HIGH RISK: >200 ----- Not Available [facility] (Lab) [address] [place], [address], 11/09/2023 21:46:09 11/09/19 24 11/09/2023 LIPID PANEL HDL cholesterol 63 mg/dL 40- Not Available [facility] (Lab) [address] [place], [address], 11/09/2023 21:46:09 11/09/19 24 11/09/2023 LIPID PANEL LDL cholesterol, calculated 154 mg/dL 0-130 high NIH TERESA NSUS REPOR T RECOM MENDA TIONS FOR LDL: ADULT CHILD LOW RISK <130 <110 (OPTI MAL LDL) <100 ----- BORDE RLINE : 130-1 59 ----- HIGH RISK: >160 >130 A TRIGL YCERI DE RESUL T >400 INVAL IDATE S THE CALCU LATIO N FOR LDL FRACT IONAT ION - THE LDL RESUL T WILL NOT BE REPOR NIKOS. Not Available [facility] (Lab) [address] [place], [address], 11/09/2023 21:46:09 11/09/19 24 11/09/2023 TSH thyroid-stim ulating hormone 0.672 uIU/m L 0.465- 4.680 Not Available [facility] (Lab) [address] [place], [address], 11/09/2023 21:56:41 11/09/19 24 11/09/2023 ANKIT TIN ferritin 7 NG/mL 6.24-1 37 Not Available [facility] (Lab) [address] [place], [address], 11/09/2023 21:56:45 06/30/20 23 06/29/2023 XR, hand No observ ation record ed. [address] [place], [address], 02/20/2024 19:52:35 06/30/20 23 06/29/2023 XR, lumba r spine No observ ation record ed. [address] [place], [address], 02/20/2024 19:52:46 06/30/20 23 06/29/2023 XR, cervi miesha spine No observ ation record ed. [address] [place], [address], 02/20/2024 19:53:00 06/30/20 23 06/29/2023 XR, hand No observ ation record ed. [address] [place], [address], 02/20/2024 19:53:22 06/30/20 23 06/29/2023 XR, sacro iliac joint (s) No observ ation record ed. [address] [place], [address], 02/20/2024 19:53:39 10/25/1910/25/2024 imagi ng/di agnos tic resul t No observ ation record ed. CLEMENT [facility] [address] [place], [address], 10/25/2024 13:20:23 10/25/19 25 10/25/2024 imagi ng/di agnos tic resul t No observ ation record ed. [facility] [address] [place], [address], 10/25/2024 20:06:17 Result Notes None recorded. Problems Name Problem SNOMED Code Status Onset Date Resolution Date Notes Provider Name and Address Organization Details Recorded Time Flexor tenosynovi tis of finger Active 2021 Not Available [facility] 3 06:02:28 Thyroid nodule 123229856 Active Repeat US in 10/2019 (yearly ) Not Available [facility] 3 06:02:28 Anemia 779894613 Active Not Available [facility] 3 06:02:28 Pain in thumb 512573230 Active Not Available [facility] 3 06:02:28 Pain of right wrist 302308729832 100 Active 2021 Not Available [facility] 3 06:02:28 Vitamin D deficiency 75217133 Active Not Available [facility] 3 06:02:28 Tendinitis 21986452 Active Not Available [facility] 3 06:02:28 Multiple joint pain 02705079 Active 2021 Not Available [facility] 3 06:02:28 Hyperlipid emia 29984666 Active Not Available [facility] 3 06:02:28 Pain in wrist 88504807 Active Not Available [facility] 3 06:02:28 Iron deficiency anemia 47056860 Active Not Available [facility] 3 06:02:28 Neck pain 59940733 Active 2022 Robbin Gaytan MD [address] [facility], [address], [address] , [place] [facility] [employer] 3 16:27:53 Low back pain 548812170 Active 2022 Robbin Gaytan MD [address], [place], [address] , [place] [facility] [employer] 3 16:27:58 Thyroid function tests abnormal 883954835 Active 2022 Robbin Gaytan MD [address], [address], [place], [address] , [place] [facility] [employer] [facility] 3 16:30:33 Pain in left foot 539588730944 107 Active 2022 Robbin Gaytan MD [address], [address], [place], [address] , [facility] [employer] [facility] [employer] [facility] 3 07:41:31 Pain of toe of left foot 439908025426 108 Active 2022 Demarco Andrea MD [address], [address], [place], [address] , [employer] [facility] 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 [employer] [facility] 4 16:17:01 Dyslipidem ia 922727905 Active 2023 NAYELI Tubbs [address], [address], [place], [address] , [employer] [facility] [employer] [facility] 4 16:34:43 Obesity 534608746 Active 2023 NAYELI Tubbs [address], [place], [address] , [place] [facility] [employer] [facility] 4 16:41:13 Notes:Some problems listed i n Documents: #[id number], #[id number] could not be added to this patient's chart. Please review these documents and add these problems to the patient's chart manually as needed. Problem Notes None recorded. Procedures Surgical History Date Name Laterality Status Provider Name and Address Organization Details Recorded Time 04/08/20 23 Ortho - Cortisone Injection completed Demarco Andrea MD [address], [place], [address], [facility] [employer] [facility] [employer] [facility] 04/08/2023 14:48:47 03/31/20 21 hysteroscopy completed Not Available [facility] 023 05:56:21 Imaging Results Imaging Date Name Status [facility] Details LastModified Time 06/29/2023 XR, hand completed [facility] [address] [place], [address], 02/20/2024 19:52:35 06/29/2023 XR, lumbar spine completed [address] [place], [address], 02/20/2024 19:52:46 06/29/2023 XR, cervical spine completed [address] [place], [address], 02/20/2024 19:53:00 06/29/2023 XR, hand completed [address] [place], [address], 02/20/2024 19:53:22 06/29/2023 XR, sacroiliac joint(s) completed [address] [place], [address], 02/20/2024 19:53:39 10/25/2024 imaging/diagnos tic result active [facility] [address] [place], [address], 10/25/2024 13:20:23 10/25/2024 imaging/diagnos tic result active [facility] [address] [place], [address], 10/25/2024 20:06:17 Procedure Notes None recorded. Medical Equipment None Reported. Allergies Allergen ID Allergen Name Allergen Category Reaction Reaction Severity Criticality Documentation Date Start Date Code Code System Note Provider Name and Address Organization Details Recorded Time 56095 Substance with sulfonami de structure and antibacte rial mechanism of action (substanc e) medicatio n Not available Not available Not available 12/09/2022 04680 8003 SNOMED Not Available [facility] 3 06:08:25 70483 codeine medicatio n Not available Not available Not available 12/09/2022 2670 RxNorm Not Available [facility] 3 06:08:25 Medications Name Sig Start Date Stop Date Status Note LastModified by Organization Details LastModified Time amoxicillin 500 mg capsule 08/11 completed Not Available Not Available Not Available promethazin e-DM 6.25 mg-15 mg/5 mL oral syrup TK 5 ML PO Q 4 H PRN. active Not Available Not Available No t Available Apri 0.15 mg-0.03 mg tablet 09/19 completed Not Available Not Available Not Available cetirizine 10 mg tablet TAKE 1 TABLET BY MOUTH DAILY NEEDED FOR CONGESTIO N 04/08 completed Not Available Not Available Not Available valacyclovi r 1 gram tablet Take 2 tablets every 12 hours by oral route for 1 day. 03/27 completed Not Available Not Available Not Available hydrocodone 5 mg-acetamin ophen 325 mg tablet 08/11 completed Not Available Not Available Not Available meloxicam 15 mg tablet TAKE 1 TABLET BY MOUTH DAILY active Not Available Not Available No t Available bupivacaine HCl 0.5 % (5 mg/mL) injection solution in office 2023 active Not Available Not Available Not Avai lable prednisone 20 mg tablet TAKE 2 TABLETS BY MOUTH EVERY MORNING WITH FOOD FOR 5 DAYS 04/08 completed Not Available Not Available Not Available acyclovir 400 mg tablet 1 po tid x 5 days prn cold sore 03/27 completed Not Available Not Available Not Available ketorolac 10 mg tablet TAKE 1 TABLET BY MOUTH EVERY 8 HOURS FOR 3 DAYS NEEDED FOR PAIN 04/22 completed Not Available Not Available Not Available terbinafine HCl 250 mg tablet Take 1 tablet every day by oral route. active Not Available Not Available No t Available methocarbam ol 750 mg tablet active Not Available Not Available Not Available cyanocobala min (vit B-12) 500 mcg tablet Take 1 tablet every day by oral route in the morning for 90 days. active Not Available Not Available No t Available methotrexat e sodium 2.5 mg tablet active Not Available Not Available Not Available Kenalog 10 mg/mL suspension for injection in office 2023 active [facility]: 0003- 0494- 20 Not Available Not Available Not Available erythromyci n 5 mg/gram (0.5 %) eye ointment APPLY 1 CM RIBBON INTO THE LOWER CONJUNCTI BENNIE SAC(S) IN THE AFFECTED EYE(S) BY OPHTHALMI C ROUTE 3 TIMES PER DAY x 7 days active Not Available Not Available No t Available diclofenac sodium 75 mg tablet,teresa yed release TAKE 1 TABLET BY MOUTH TWICE DAILY active Not Available Not Available No t Available folic acid 1 mg tablet TAKE 1 TABLET BY MOUTH DAILY active Not Available Not Available No t Available pravastatin 20 mg tablet Take 1 tablet(s) every day by oral route at bedtime. active Not Available Not Available No t Available ergocalcife rol (vitamin D2) 1,250 mcg (50,000 unit) capsule TAKE 1 CAPSULE BY MOUTH EVERY WEEK active Not Available Not Available No t Available ibuprofen 600 mg tablet TAKE 1 TABLET BY MOUTH EVERY 6 HOURS WITH FOOD NEEDED 05/14 completed Not Available Not Available Not Available ferrous sulfate 325 mg (65 mg iron) tablet,teresa yed release TAKE 1 TABLET BY MOUTH ONCE DAILY WITH A MEAL 05/14 completed Not Available Not Available Not Available fluticasone propionate 50 mcg/actuati on nasal spray,suspe nsion SHAKE LIQUID AND USE 2 SPRAYS IN EACH NOSTRIL DAILY NEEDED FOR ALLERGY SYMPTOMS 04/08 completed Not Available Not Available Not Available naproxen 500 mg tablet TAKE 1 TABLET BY MOUTH TWICE DAILY 11/09 completed Not Available Not Available Not Available hydrocodone 5 mg-acetamin ophen 300 mg tablet TAKE 1 TABLET BY MOUTH EVERY 6 HOURS NEEDED 05/14 completed Not Available Not Available Not Available lidocaine (PF) 10 mg/mL (1 %) injection solution In office injection administe red by the provider 12/16 completed [facility]: [phone] Not Available Not Available Not Available Jolessa 0.15 mg-30 mcg (91) tablets,3 month dose pack active Not Available Not Available Not Available FeroSul 325 mg (65 mg iron) tablet TAKE 1 TABLET BY MOUTH EVERY OTHER DAY 04/08 completed Not Available Not Available Not Available ropivacaine (PF) 5 mg/mL (0.5 %) injection solution Take 10 mg by injection route. 11/09 completed [facility] [phone] Not Available Not Available Not Available Ozempic active Not Available Not Avail able Not Available Afluria Quad (PF) 60 mcg (15 mcg x 4)/0.5 mL IM syringe active Not Available Not Available N ot Available Fluarix Quad (PF) 60 mcg (15 mcg x 4)/0.5 mL IM syringe active Not Available Not Available N ot Available ID NOW COVID-19 Test Kit TEST DIRECTED TODAY 04/08 completed Not Available Not Available Not Available Afluria Qd (36 mos up)(PF)60 mcg (15 mcg x4)/0.5 mL IM syringe ADM 0.5ML IM UTD 05/14 completed Not Available Not Available Not Available Ozempic 0.25 mg or 0.5 mg (2 mg/3 mL) subcutaneou s pen injector Inject by subcutane ous route for 28 days. active Not Available Not Available No t Available Vitals Date Recorded Body height Body mass index (BMI) Body weight Provider Name and Address Organization Details Last Updated DateTime 05/06/2023 165.1 cm 26.6 kg/m2 83232.78 g Aliza Brooks [employer] 05/06/2023 14:19:41 Date Recorded Body height Body mass index (BMI) Body weight Body temperature Heart rate Oxygen saturation Oxygen saturation in Arterial blood by Pulse oximetry Systolic blood pressure Diastolic blood pressure Provider Name and Address Organization Details Last Updated DateTime 165.1 cm 28.5 kg/m2 32629.3 g 97.6 [degF] 80 /min 97 % 97 % 120 mm[Hg] 80 mm[Hg] Barb Buenrostro RN [employer] 16:02:14 Date Recorded Body height Body mass index (BMI) Body weight Provider Name and Address Organization Details Last Updated DateTime 02/16/2024 165.1 cm 28.3 kg/m2 68659.7 g PANKAJ Jaimes [employer] 02/16/2024 14:54:03 Date Recorded Body height Body mass index (BMI) Body weight Provider Name and Address Organization Details Last Updated DateTime 02/18/2024 165.1 cm 28.3 kg/m2 56111.7 g Consuelo Childs PANKAJ [place] [facility] [employer] 02/18/2024 15:17:33 Date Recorded Body height Body mass index (BMI) Body weight Body temperature Heart rate Oxygen saturation Oxygen saturation in Arterial blood by Pulse oximetry Systolic blood pressure Diastolic blood pressure Provider Name and Address Organization Details Last Updated DateTime 4 165.1 cm 29.8 kg/m2 18094.0 3 g 98.5 [degF] 80 /min 98 % 98 % 120 mm[Hg] 78 mm[Hg] Barb Buenrostro RN [place] - [facility] [employer] 4 16:28:11 Social History Question Answer Notes LastModified by Organizat ion Details LastModified Time Tobacco Smoking Status Never Smoker Not Available [facility] 12/09/2022 05:54:04 Do You Have An Advance Directive? No [id number] Information not available 12/09/2022 What Is Your Level Of Alcohol Consumption? None [id number] Information not available 12/09/2022 What Is Your Level Of Caffeine Consumption? Occasional [id number] Information not available 12/09/2022 How Much Tobacco Do You Chew? None [id number] Information not available 12/09/2022 In The 14 Days Before Symptom Onset, Have You Had Close Contact With A Laboratory-confir med COVID-19 While That Case Was Ill? No [id number] Information not available 12/09/2022 In The 14 Days Before Symptom Onset, Have You Had Close Contact With A Person Who Is Under Investigation For COVID-19 While That Person Was Ill? No [id number] Information not available 12/09/2022 What Type Of Diet Are You Following? REGULAR [id number] Information not available 12/09/2022 Which Illicit Or Recreational Drugs Have You Used? NO [id number] Information not available 12/09/2022 Do You Or Have You Ever Used E-cigarettes Or Vape? Never Used Electronic Cigarettes [id number] Information not available 12/09/2022 Do You Have A Medical Power Of Environmental Aid? No [id number] Information not available 12/09/2022 Do You Or Have You Ever Used Smokeless Tobacco? Never Used Smokeless Tobacco [id number].[id number] 1335 Information not available 12/09/2022 Have You Recently Traveled Abroad? No [id number].[id number] 0255 Information not available 12/09/2022 Do You Have Any Dietary Restrictions? No [email or web address] Information not available 12/28/2022 Sex: Unknown Functional Status Question Answer Note LastModified by Organizat ion Details LastModified Time What is your exercise level? Occasional [id number] Information not available 12/09/2022 Mental Status None recorded. Family History Relationship Description Onset Age of this Age Resolved Age Notes LastModified by Organization Details LastModified Time Father Essential hypertension [id number] Not available 12/09/2022 05:56:24 Father Diabetes mellitus [id number] Not available 12/09/2022 05:56:24 Mother Essential hypertension [id number] Not available 12/09/2022 05:56:24 Mother Family history of stroke [id number] Not available 12/09/2022 05:56:24 Mother Diabetes mellitus [id number] Not available 12/09/2022 05:56:24 Brother Family history of malignant neoplasm [email or web address] Not available 2022 14:15:41 Mother Kidney disease [email or web address] Not available 2022 14:16:06 Medical History Condition Response ARTHRITIS Y ANEMIA/BLOOD DISORDER Y Gynecological History Statement/Question Response Menses Monthly Y How many live births 2 Date of LMP 11/15/2022 Obstetrics History GPAL:G 2 P 2 0 0 2 Type Value Full Term 2 Living 2 Total 2 Immunizations Vaccine Type Date Status Note Provider Nam e and Address Organization Details Recorded Time Influenza, split virus, quadrivalent, PF 7 completed Not Available [facility] 12/09/2022 06:08:03 Influenza, split virus, quadrivalent, PF 5 completed Not Available [facility] 12/09/2022 06:08:03 Influenza, split virus, quadrivalent, PF 4 completed Not Available [facility] 12/09/2022 06:08:03 Influenza, split virus, quadrivalent, preservative 6 completed Not Available [facility] 12/09/2022 06:08:03 Past Encounters Encounter ID Performer Location Encounter Start Date Encounter Closed Date Diagnosis/Indication Diagnosis SNOMED-CT Code Diagnosis ICD10 Code Diagnosis Note [id number] [facility] [place] [facility] [address] [facility] [address] [place] [address] 04/22/2021 00:00:00 05/02/2021 10:17:52 [id number] [facility] [place] [address] [place] [address] 05/14/2021 00:00:00 05/14/2021 18:30:34 [id number] [facility] [place] [address] [facility] [address] [place] [address] 07/15/2021 00:00:00 07/15/2021 16:13:39 [id number] [facility] [place] [address] [place] [address] [address] [place] [address] 12/16/2021 00:00:00 12/16/2021 17:21:59 [id number] [facility] [place] [address] [facility] [address] [place] [address] 12/24/2021 00:00:00 12/24/2021 16:43:55 [id number] [facility] [place] [address] [facility] [address] [place] [address] 04/15/2022 00:00:00 04/15/2022 18:02:29 [id number] [facility] [place] [address] [facility] [address] [place] [address] 08/18/2022 00:00:00 08/18/2022 16:46:41 [id number] [facility] [place] [address] [place] [address] 11/17/2022 00:00:00 12/06/2022 16:00:17 [id number] Robbin Gaytan MD [facility] [address] [place] [address] 12/28/2022 16:03:03 12/28/2022 17:20:12 Multiple joint pain 18689898 M25.50 repeat esrremaini ng labs look good Neck pain 57192103 M54.2 reviewed neck xrayhome exercise handout given Low back pain 759812066 M54.50 reviewed lumbar spine xrayhome exercise handout given Thyroid fu nction tests abnormal 091284899 R94.6 recheck labs [id number] Robbin Gaytan MD [facility] Primary Care [address] [place] [address] 02/08/2023 16:04:45 02/08/2023 16:59:33 Dietary management surveillance 296950706 Z71.3 doing well on ozempic sample along with diet/exerc ise Screening mammography 24 077974 Z12.31 [id number] Robbin Gaytan MD [facility] Primary Care [address] [place] [address] 03/16/2023 18:12:18 03/16/2023 18:13:36 [id number] Demarco Andrea MD [facility] [place] [address] [place] [address] 04/08/2023 13:49:15 04/08/2023 15:18:09 Pain in left foot 4866992678 80220 M79.672 Pain of to e of left foot 9922807031 06524 M79.675 [id number] Demarco Andrea MD [facility] [place] [address] [place] [address] 05/06/2023 14:18:15 05/06/2023 14:27:25 Pain in left foot 6842369299 97579 M79.672 Pain of to e of left foot 2709387176 40499 M79.405 [id number] Robbin Gaytan MD [facility] Primary Care [address] [place] [address] 11/09/2023 15:54:33 11/09/2023 16:55:36 Iron deficiency anemia 58574102 D50.9 Thyroid fu nction tests abnormal 468244153 R94.6 recheck labs Vitamin D deficiency 347 79209 E55.9 Hyperlipid emia screening 362191033 Z13.220 Diabetes m ellitus screening 336218134 Z13.1 Multiple joint pain 3567 8005 M25.50 repeat esrremaini ng labs look good update 11/09/23: has been evaluated by rheumatolo gynjoseoxen caused gi upsetok to take famotidine 20 mg po bid prn with meloxicam 15 mg daily. Can also split meloxicam and take 7.5 mg po bid with meals if that helps her tolerate it better [id number] Charlie Hayes MD [facility] [place] [address] [place] [address] 02/16/2024 14:49:43 02/16/2024 15:15:37 Pain in left foot 8337748660 24939 M79.672 Pain of to e of left foot 1800048180 66716 M79.675 Metatarsalgia 91359489 M 77.42 [id number] BRYAN Chandra [facility] [place] [address] [place] [address] 02/18/2024 15:15:32 02/28/2024 14:08:23 Pain of toe of left foot 2132435964 93407 M79.675 Pain in left foot 149489 9641 56814 M79.672 Metatarsalgia 98748332 M 77.42 [id number] NAYELI Tubbs [facility] Primary [facility] [address] [facility] [address] [place] [address] 04/26/2024 16:23:30 04/26/2024 17:01:08 Dyslipidemia 186573786 E78.5 Obesity 437107047 E66.9 Discussed diet and exercise. Health Concerns Section Related Observation LastModified by Organization Detai ls LastModified Time None Recorded Concern Status LastModified by Organization Details LastModified Time None Recorded Advance Directives Directive N: Payers Encounter Date Sequence Insurance Name Policy Number Policy Nam Covered Member ID Nam Member ID Guarantor Name 05/06/2023 1 [facility] ON OR AFTER 04/10/21 (MEDICAID REPLACEMENT - HMO) Hilda Pollack [id number] Hilda Pollack 11/09/2023 1 [facility] ON OR AFTER 04/10/21 (MEDICAID REPLACEMENT - HMO) Hilda Pollack [id number] Hilda Pollack 02/16/2024 1 [facility] ON OR AFTER 04/10/21 (MEDICAID REPLACEMENT - HMO) Hilda Pollack [id number] Hilda Pollack 02/18/2024 1 [facility] ON OR AFTER 04/10/21 (MEDICAID REPLACEMENT - HMO) Hilda Pollack [id number] Hilda Pollack 04/26/2024 1 [facility] ON OR AFTER 04/10/21 (MEDICAID REPLACEMENT - HMO) Hilda Pollack [id number] Hilda Pollack Notes Date Note Type Note Provider Name and Address Organization Details Recorded Time 05/06/2023 text/html Patient presents left 2nd toe pain. Apparently she had a lot of swelling and in the toe such that the the swelling went down skin peeled she has pain at the MTP joint pain with manipulation. She has had multiple injections in her hands for its tenosynovitis trigger fingers. Demarco Andrea MD [address], [place], [address], [employer] 05/06/2023 14:24:34 11/09/2023 text/html continues to wor k on diet/exercise. saw rheumatology who prescribed naproxen which caused GI upset. 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 She has not started it yet. Robbin Gaytan MD [address], [place], [address], [employer] 11/09/2023 18:28:32 02/18/2024 text/html patient returns requesting an cortisone injection into the left foot. She has metatarsalgia type pain localized to the base of the left 2nd toe. She has seen Dr. Hayes about this recently he recommended evaluation and treatment by the spool sorter here but the patient states she would rather just try 1 shot of cortisone he has informed her this is not something he normally does so she wanted to see me today to have the injection done. She states she had a similar injection done 1 year ago after seeing Dr. Andrea in April of 2023 which gave her excellent relief until recently when her pain has flared up again. Denies any new trauma or injury no numbness or tingling just pain with ambulation which causes her to try to walk more on the side of her foot because of the metatarsalgia. We are going to do an injection today for her. BRYAN Chandra [address], [place], [address], [employer] 02/18/2024 16:10:23 04/26/2024 text/html Patient is a 49 year old female that presents to the office for follow up on blood work. Patient had blood completed 6 months ago that should elevation of cholesterol. Patient reports her diet could be better but her exercise has improved. Patient also reports she believes her weight is a contributing factor as she had elevated cholesterol in the past that was fixed with weight loss. Patient would like to try medication for weight loss to see if that helps. Patient is vegetarian so it is hard for her to get adequate protien intake but she is trying to improve that. Patient denies chest pain and shortness of breath, nausea vomiting and diarrhea. NAYELI Tubbs [address], [place], [address], [employer] 04/27/2024 09:46:32 OBGyn Episode No OBEpisode recorded.
--- OUTSIDE RECORDS SUMMARY | 2024-11-02 11:07 | XMS_ITS | Clinical Summary ---
Author Organization [facility] Address [address] [place] [address] Care Team Providers Care Teamcenter Consultant Name Role Phone Etta Gaytan MD Primary Care Provider [phone] Source Comments [facility],non-owned Affiliates and Associated Physician Practices is amultiple site organization consisting of ambulatory clinics and hospital sitesin [place], [place], [place] and [place]. This disclosure is being madepursuant to the Care Everywhere program and may not contain all information available regarding this patient. 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 Alwaysverify current medications with the patient. Medication Sig Dispensed Refills Start Date End Date Status vitamin D, ergocalciferol, (Drisdol) 1.25 MG (96351 UT) capsule Take 1 (one) capsule by mouth every 14 days 05/26/2023 Active docusate sodium (Colace) 100 MG capsule Take 1 (one) capsule by mouth once daily Active multivitamin daily tablet Take 1 (one) tablet by mouth daily with food Active folic acid (Folvite) 1 MG tabletIndications :Inflammatory arthritis Take 1 (one) tablet by mouth once daily 90 tablet 4 02/08/2024 Active meloxicam (Mobic) 15 MG tablet Take 1 (one) tablet by mouth once daily 90 tablet 1 07/21/2024 Active adalimumab (Humira, 2 Pen,) 40 MG/0.4ML injectionIndicati ons:Psoriatic arthritis (HCC),Screening-p ulmonary TB Inject 0.4 mL subcutaneously every 14 days 2.4 mL 1 09/13/2024 Active Active Problems Problem Noted Date Diagnosed Date Hyperlipidemia 06/29/2023 06/29/2023 Iron deficiency anemia 06/29/2023 Thyroid nodule 06/29/2023 06/29/2023 Overview (06/29/2023): Repeat US in 10/2019 (yearly) Low back pain 12/28/2022 06/29/2023 Flexor tenosynovitis of finger 04/15/2022 0 06/29/2023 Encounters Date Type Department Care Team Description 10/13/2024 Orders Only [facility] - Rheumatology [address] [place] [phone] Arun Clements MD Therapeutic drug monitoring 09/26/2024 3:20 PM COREMAKER Office Visit [facility] - Rheumatology [address] [place] [phone] Arun Clements MD Psoriatic arthritis (HCC) (Primary Dx); Immunosuppression due to drug therapy (HCC) 09/26/2024 Travel 09/19/2024 Pharmacist Telephone/Documenta [facility] [address] [place] [address] Arun Clements MD Medication Monitoring (HUMIRA (2 PEN) 40 MG/0.4ML KIT) 09/13/2024 Refill [facility] - Rheumatology [address] [place] [phone] Arun Clements MD Refill Request (Humira) 08/30/2024 Telephone [facility] - Rheumatology [address] [place] [phone] Arun Clements MD Medication Prior Auth Request (Adalimumab-adaz ) 08/29/2024 Orders Only [facility] - Rheumatology [address] [place] [phone] Arun Clements MD Screening-pulmonary TB 08/29/2024 Orders Only [facility] - Rheumatology [address] [place] [phone] Arun Clements MD Psoriatic arthritis (HCC) ; Screening-pulmonary TB 08/28/2024 Telephone [facility] - Rheumatology [address] [place] [phone] Arun Clements MD Headache from Last 3 Months Family History Medical History Relation Name Comments Psoriasis Father Relation Name Status Comments Father Social History Tobacco Use Types Packs/Day Years [...] Comments Blood Pressure 111/60 09/26/2024 3:22 PM COREMAKER Pulse 64 09/26/2024 3:22 PM COREMAKER Temperature 36.2 ??C (97.2 ??F) 09/26/2024 3:22 PM CS T Respiratory Rate 16 02/08/2024 2:49 PM CDT Oxygen Saturation 96% 06/27/2024 3:16 PM CDT Inhaled Oxygen Concentration - - Weight 82.1 kg (181 lb) 09/26/2024 3:22 PM COREMAKER Height 165.1 cm (5' 5 ) 09/26/2024 3:22 PM COREMAKER Body Mass Index 30.12 09/26/2024 3:22 PM COREMAKER Plan of Treatment Upcoming Encounters Date Type Department Care Team (Late st Contact Info) Description 12/26/2024 2:40 PM CDT Office Visit [facility] - Rheumatology [address] [place] [phone] Arun Clements MD [address] [place] [address] [place] [phone] Health Maintenance Due Date Last Done Comments COLOGUARD (AGES 45-75) - COLON CA SCREENING 1977 COLON MONITORING 1977 COLONOSCOPY - COLON CA SCREENING [address] CT COLONOGRAPHY - COLON CA SCREENING 1977 Colorectal Cancer Screening 1977 FIT - COLON CA SCREENING 1977 FLEX SIG - COLON CA SCREENING 1977 LIPID TESTING 1977 MAMMOGRAM 1977 COVID-19 VACCINE (#1) 1982 HIV SCREENING 01/30/1992 HEPATITIS C SCREENING 01/25/1995 DTAP/TDAP/TD VACCINES (1 - Tdap) 01/30/1996 HEPATITIS B VACCINE (1 of 3 - 19+ 3-dose series) 01/30/1996 PNEUMOCOCCAL VACCINE (1 of 2 - PCV) 01/30/1996 ZOSTER VACCINE (1 of 2) 01/30/1996 PAP SMEAR 07/27/2020 07/27/2017 SCREENING FOR DIABETES 06/29/2023 INFLUENZA VACCINE (#1) 2024 7, 08/13/2016, 08/07/2015, Additional history exists DEPRESSION SCREENING 10/11/2024 06/27/2024 HIB VACCINE Aged Out No longer eligi ble based on patient's age to complete this topic HPV VACCINE Aged Out No longer eligi ble based on patient's age to complete this topic MENINGOCOCCAL (Group B) VACCINE Aged Out No longer eligible based on patient's age to complete this topic MENINGOCOCCAL VACCINE Aged Out No nikki sonia eligible based on patient's age to complete this topic Procedures Procedure Name Priority Date/Time Associated Diagnosis Comments LAB RESULTS ORDER 09/25/2024 LAB RESULTS ORDER 09/25/2024 from Last 3 Months Results * LAB RESULTS ORDER (09/25/2024) Only the most recent of2 resultswithin the time period is included. 09/25/2024 Narrative 09/25/2024 Ordered by an unspecified provider. Scanned Document LAB - THERAPEUTIC DR FAGAN MONITORING ORDERABLES from Last 3 Months Care Teams Teamcenter Consultant Relationship Specialty Start Date End Date Etta Gaytan MD [address] [place] [address] [place] [phone] PCP - General Family Medicine 06/29/23
--- OUTSIDE RECORDS SUMMARY | 2024-11-02 11:07 | XMS_ITS | Referral Summary ---
Author Organization [facility] Address [address] [facility] [place] [address] Care Team Providers Care Production Welder Name Role Phone Etta Gaytan MD Primary Care Provider Source Comments [facility],non-owned Affiliates and Associated Physician Practices is amultiple site organization consisting of ambulatory clinics and hospital sitesin [place], [place]. This disclosure is being madepursuant to the Care Everywhere program and may not contain all information available regarding this patient. Last updated 18.[facility] Encounters Date Type Department Care Team Description 10/13/2024 Orders Only [facility] - Rheumatology [address] [place] [phone] Arun Clements MD Therapeutic drug monitoring 09/26/2024 Travel 09/26/2024 3:20 PM PRODUCTION SUPPORT SPECIALIST Office Visit [facility] Physician [facility] - Rheumatology [address] [place] [phone] Arun Clements MD Psoriatic arthritis (HCC) (Primary Dx); Immunosuppression due to drug therapy (HCC) 09/19/2024 Pharmacist Telephone/Documenta tion [facility] [address] [place] [phone] Arun Clements MD Medication Monitoring (HUMIRA (2 PEN) 40 MG/0.4ML KIT) 09/13/2024 Refill [facility] - Rheumatology [address] [place] [phone] Arun Clements MD Refill Request (Humira) 08/30/2024 Telephone [facility] - Rheumatology [address] [place] [phone] Arun Clements MD Medication Prior Auth Request (Adalimumab-adaz ) 08/29/2024 Orders Only [facility] - Rheumatology [address] [place] [phone] Arnu Clements MD Screening-pulmonary TB 08/29/2024 Orders Only [facility] - Rheumatology [address] [place] [phone] Arun Clements MD Psoriatic arthritis (HCC) ; Screening-pulmonary TB 08/28/2024 Telephone [facility] - Rheumatology [address] [place] [phone] Arun Clements MD Headache from Last 3 Months Allergies Active Allergy Reactions Criticality Noted Date Comments Codeine Nausea and/or Vomiting Low 06/29/2023 Methotrexate 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 Alwaysverify current medications with the patient. Medication Sig Dispensed Refills Start Date End Date Status vitamin D, ergocalciferol, (Drisdol) 1.25 MG (28306 UT) capsule Take 1 (one) capsule by [...] Comments Blood Pressure 111/60 09/26/2024 3:22 PM PRODUCTION SUPPORT SPECIALIST Pulse 64 09/26/2024 3:22 PM PRODUCTION SUPPORT SPECIALIST Temperature 36.2 ??C (97.2 ??F) 09/26/2024 3:22 PM CS T Respiratory Rate 16 02/08/2024 2:49 PM CDT Oxygen Saturation 96% 06/27/2024 3:16 PM CDT Inhaled Oxygen Concentration - - Weight 82.1 kg (181 lb) 09/26/2024 3:22 PM PRODUCTION SUPPORT SPECIALIST Height 165.1 cm (5' 5 ) 09/26/2024 3:22 PM PRODUCTION SUPPORT SPECIALIST Body Mass Index 30.12 09/26/2024 3:22 PM PRODUCTION SUPPORT SPECIALIST Plan of Treatment Upcoming Encounters Date Type Department Care Team (Late st Contact Info) Description 12/26/2024 2:40 PM CDT Office Visit [facility] - Rheumatology [address] [place] [address], [place] [phone] Arun Clements MD [address] [place] [address] [place] [address] Procedures Procedure Name Priority Date/Time Associated Diagnosis Comments LAB RESULTS ORDER 09/25/2024 LAB RESULTS ORDER 09/25/2024 from Last 3 Months Results * LAB RESULTS ORDER (09/25/2024) Only the most recent of2 resultswithin the time period is included. 09/25/2024 Narrative 09/25/2024 Ordered by an unspecified provider. Scanned Document LAB - THERAPEUTIC DR FAGAN MONITORING ORDERABLES from Last 3 Months Care Teams Production Welder Relationship Specialty Start Date End Date Etta Gaytan MD [address] [place] [phone] PCP - General Family Medicine 06/29/23
== END 2024-10-30 08:49 | disposition home or self-care (01) ==
PROVIDERS: PCP Family Medicine; Visit Provider Obstetrics & Gynecology Gynecology
PROC: 0U5B8ZZ Destruction of Endometrium, Via Natural or Artificial Opening Endoscopic (ICD-10-PCS; CPT 58563; principal; 2024-10-30 07:30)
DX: N92.1 Excessive and frequent menstruation with irregular cycle (principal); E66.9 Obesity, unspecified; Z68.31 Body mass index [BMI] 31.0-31.9, adult
CPT/HCPCS: 58558; 88305; A9270; J2003; J2250; J2704; J3010; J7120

== ENCOUNTER 2025-05-27 16:10 | Emergency (ER) | payer OTHER, SELFPAY ==
--- NOTE | 2025-05-27 16:13 | ED_ITS ---
HPI - General Adult General Chief complaint: Back Pain/Injury Stated complaint: Back Pain Time Seen by Provider: 05/27/25 16:13 Source: patient Mode of arrival: ambulatory Limitations: no limitations History of Present Illness HPI narrative: 50-year-old female patient presents to the [facility] with complaints of lower back pain times 2-3 days. Patient states that she went to go and bend over to pick something up a couple of days ago and pulled something in her lower back. Patient states she thought it was getting better and was taking some meloxicam that was prescribed to her by her primary doctor along with some Tylenol and states she bent down yesterday again and reaggravated it and now feels like the pain is going down her left leg. Patient denies any numbness or tingling denies any loss of bowel or bladder control. Related Data Home Medications ?Medication ?Instructions ?Recorded ?Confirmed ?Last Taken ?Type Lactobacillus acidophilus 10 10,000 mmu cells PO DAILY 03/18/21 10/25/24 Unknown History billion cell capsule (Probiotic) ergocalciferol (vitamin D2) 1,250 1,250 mcg PO .COMPLEX 03/18/21 10/25/24 10/23/24 History mcg (50,000 unit) capsule (Vitamin D2) fiber 1 tablet PO DAILY 03/18/21 10/25/24 Unknown History multivitamin-ferrous 1 tablet PO DAILY 03/18/21 10/25/24 Unknown History fumarate-folic acid 18 mg-400 mcg tablet (Centrum Complete) adalimumab 40 mg/0.4 mL 40 mg subcut .COMPLEX 10/25/24 10/25/24 10/24/24 History subcutaneous pen kit (Humira(CF) Pen) magnesium glycinate 100 mg (as 100 mg PO DAILY 10/25/24 10/25/24 10/25/24 History glycinate) tablet (Mag Glycinate) meloxicam 15 mg tablet 15 mg PO DAILY 10/25/24 10/25/24 10/25/24 History Allergies Allergy/AdvReac Type Severity Reaction Status Date / Time codeine Allergy Mild Nausea Verified 10/30/24 07:03 Sulfa (Sulfonamide Allergy Unknown Unknown Verified 10/30/24 07:03 Antibiotics) Review of Systems Review of Systems: CONSTITUTIONAL: Denies fever, chills, or sweats. EYES: Denies visual changes, redness, or discharge. ENT: Denies rhinorrhea, congestion, sore throat, or otalgia. CARDIOVASCULAR: Denies chest pain, palpitations, or edema. RESPIRATORY: Denies cough or dyspnea. GASTROINTESTINAL: Denies abdominal pain, nausea, vomiting, or diarrhea. GENITOURINARY: Denies dysuria or hematuria. SKIN: Denies rash or itching. MUSCULOSKELETAL: Positive low back pain with pain radiating to the left leg, denies joint pain, or myalgia. NEUROLOGIC: Denies headache, numbness, or weakness. PSYCHIATRIC: Denies anxiety or depression. [facility] Past Medical History Medical History (normal spontaneous vaginal delivery) x2 Thyroid nodule biopsy 2014 bengin Migraine Elevated cholesterol Surgical History Surgical History History of surgery on wrist X2 History of hysteroscopy 2020 with polyps H/O removal of cyst Family History Family History Father Diabetes mellitus Mother Diabetes mellitus Social History Social History Smoking status: Never smoker Alcohol intake: never Substance use: never Substance use type: does not use Living arrangements: alone Gender identity (if verbalized by the patient): Female Spiritual care concerns: No Comments At the time of my signature I agree with nursing past medical history, surgical, social, and family history. There is no relevant family history pertinent to the presenting complaint. Exam Narrative: GENERAL: Well-appearing, well-nourished, and in no acute distress. HEAD: Normocephalic, atraumatic. EYES: PERRLA and EOMI. ENT: Nares clear, no rhinorrhea or epistaxis. Mucous membranes moist. NECK: Supple. No lymphadenopathy CHEST: Clear to auscultation. No respiratory distress. HEART: Regular rate and rhythm. No murmur heard. Normal peripheral pulses. ABDOMEN: Soft, nontender, nondistended, normal active bowel sounds. EXTREMITIES: Normal range of motion. No edema. BACK: Patient is able to ambulated without assistance. Pt is seated on the stretcher in no obvouis distress. No surface trauma noted. muscle tenderness to Palpation of the left low lateral back area. No obvious spasm or mass. No step- offs or deformity noted to the cervical, thoracic or lumbar spine to firm Palpation at the midline. No CVA tenderness to percussion. No saddle anesthesia. ROM: able to stand erect. Significantly decreased forward flexion, and backward extension, normal Lateral bending and rotation without limitation or complaint of pain. SKIN: Warm, dry, no rash. NEURO: No focal deficits. Alert and oriented x3. Course Course Level of Care: Express Care Visit Vital Signs Vital signs: Vital Signs Temperature 36.8 C 05/27/25 16:20 Pulse Rate 89 05/27/25 16:20 Respiratory Rate 16 05/27/25 16:20 Blood Pressure 133/68 05/27/25 16:20 Pulse Oximetry 97 05/27/25 16:20 Oxygen Delivery Room Air 05/27/25 16:20 Temperature 36.8 C 05/27/25 16:20 Pulse Rate 89 05/27/25 16:20 Respiratory Rate 16 05/27/25 16:20 Blood Pressure 133/68 05/27/25 16:20 Pulse Oximetry 97 05/27/25 16:20 Oxygen Delivery Room Air 05/27/25 16:20 Vital signs reviewed. Medical Decision Making MDM Narrative Medical decision making narrative: Plan care for patient's discharge her home with oral steroid and muscle relaxants to help with suspected sciatica. Discussed with patient that after she has completed the steroid that she can start back on her meloxicam. Discussed with patient that if this continues she may need to follow-up with her primary doctor to get some physical therapy. Patient verbalized understanding denies any other questions or concerns at this time. Differential Diagnosis Differential Diagnosis: Differential diagnosis: Acute musculoskeletal injury or exacerbation, neurological emergency, acute coronary syndrome, kidney stones, epidural abscess or hematoma,Cauda Equina Syndrome, herniation. Vital Signs Vital Signs: Vital Signs Temperature 36.8 C 05/27/25 16:20 Pulse Rate 89 05/27/25 16:20 Respiratory Rate 16 05/27/25 16:20 Blood Pressure 133/68 05/27/25 16:20 Pulse Oximetry 97 05/27/25 16:20 Oxygen Delivery Room Air 05/27/25 16:20 Temperature 36.8 C 05/27/25 16:20 Pulse Rate 89 05/27/25 16:20 Respiratory Rate 16 05/27/25 16:20 Blood Pressure 133/68 05/27/25 16:20 Pulse Oximetry 97 05/27/25 16:20 Oxygen Delivery Room Air 05/27/25 16:20 Critical Care Time Critical Care Time Critical Care Time: No Discharge Plan Discharge Clinical Impression: Acute low back pain with sciatica Patient Disposition: Home Condition: Stable Instructions: Antibiotic Form, Sciatica (ED), Lower Back Exercises (ED) Additional Instructions: Ice and heat to the area for 20-30 minutes Gentle stretching exercises Gentle massage Caution with lifting, bending, stooping, twisting Avoid pushing, pulling take muscle relaxants as directed--caution drowsiness and no driving or alcohol Anti-inflammatory medicine as directed--take with food He may take the muscle relaxant and anti-inflammatory at the same time Pain medicine as directed for severe pain--caution drowsiness-no driving or alcohol. If this medicine is a narcotic, you can become constipated. He may want to start a laxative right away. Follow-up with your PCP if not improving in 5-7 days Patient Language: Welsh Prescriptions: New prednisone 50 mg tablet 50 mg PO DAILY 5 Days Qty: 5 0RF cyclobenzaprine 10 mg tablet 10 mg PO TID PRN (Reason: muscle spasm) 7 Days Qty: 21 0RF No Action Humira(CF) Pen 40 mg/0.4 mL pen injector kit 40 mg SUBCUT .COMPLEX Rx Instructions: 40 mg subcutaneously every two weeks; meloxicam 15 mg tablet 15 mg PO DAILY Mag Glycinate 100 mg tablet 100 mg PO DAILY fiber Tablet 1 tablet PO DAILY ergocalciferol (vitamin D2) [Vitamin D2] 1,250 mcg (50,000 unit) Capsule 1,250 mcg PO .COMPLEX Rx Instructions: 1,250 mcg orally every two weeks; Centrum Complete 18-400 mg-mcg Tablet 1 tablet PO DAILY Probiotic 10 billion cell Capsule 10,000 mmu cells PO DAILY Follow-up/Referrals: Kyra,Lazara Thomson NP [Primary Care Provider] - Time of Disposition: 16:39
[2025-05-27 16:20] VITALS: BP 133/68; PULSE 89; RESP 16; TEMP 36.8; O2SAT 97
== END 2025-05-27 17:00 | disposition home or self-care (01) ==
PROVIDERS: Emergency Provider Nurse Practitioner Family; PCP Nurse Practitioner Family
DX: M54.42 Lumbago with sciatica, left side (principal); E78.00 Pure hypercholesterolemia, unspecified
CPT/HCPCS: 99213; G0463

== ENCOUNTER 2025-06-14 19:55 | Emergency (ER) | payer OTHER, SELFPAY ==
--- OUTSIDE RECORDS SUMMARY | 2010-06-24 07:30 | XMS_ITS | Continuity of Care Document ---
Author Organization [facility] [place] Address [address] [address] [facility] [address] [place] [address] Phone Care Team Providers Care Figure Clerk Name Role Phone Eugene OD, Mahin Unavailable Unavailable Procedures Procedure Date Eye Exam & Treatment Refraction Eye Exam, New Patient Advance Directives Directive Yes / No Effective Date File Name No Information Encounters Encounter Description Practice Location Reason(s) For Visit Diagnoses Date Provider Providers Copied on Encounter [facility], [address] [place] [address] [address], [place], [place], [id number], tel:[phone] [facility] No Information Sep-1 4-201 0 Eugene OD Mahin. [address] [place] , [address], [place], [address], [place]. tel:[phone] [facility], [address] [place] [address] [address], [place], [place], [id number], tel:[phone] [facility] [place] No Information Sep-0 8-200 9 Eugene OD Mahin. [address] [place] , [address], [place], [address], [place]. tel:[phone] Family History Family Member Type Diagnosis Age At Onset No Information Payers Payer name Insurance type Covered alliance party ID Authoriza tibill(s) [facility] [id number] Social History Type Description Quantity Date Captured Comments Sex Female Smoking Status No Information Chief Complaint And Reason For Visit No Information Reason For Referral Reason For Referral No Information History Of Present Illness Encounter Date Complaint History Of Prese nt Illness No Information Functional Status Date Functional Assessmen t No Information Instructions Date Instruction Additional Infor mation No Information Assessments Type Assessment Date No Information Patient Care Teams Name Effective Dates (start - stop) Status Members No Information
[2025-06-14] VITALS (15 sets, daily range): BP systolic 124–135; BP diastolic 53–74; PULSE 123; RESP 16; TEMP 37.1; O2SAT 93–98
--- NOTE | ~2025-06-14 | CT_ITS ---
EXAM: CT lumbar spine wo con - 06/14/2025 22:47 CDT History: 50 years old Female with back pain, LLE numbness Comparison None Technique Thin helical images obtained without intravenous contrast according to standard protocol. Coronal and sagittal reformatted images are provided. Findings No fracture or gross subluxation is appreciated. Alignment is satisfactory. No intraspinal or paraspinal mass or hematoma appreciated. No significant lesion of the visualized airway or lungs. No gross mass or adenopathy identified, considering lack of IV contrast for this exam. Impression: 1. No acute abnormality of the cervical, thoracic or lumbar spine detected by CT. Reviewed, dictated and finalized at location N. Impression: 1. No acute abnormality of the cervical, thoracic or lumbar spine detected by CT.
--- OUTSIDE RECORDS SUMMARY | 2025-06-14 19:57 | XMS_ITS | Encounter Summary ---
Author Organization [facility] Address [address] [facility] [place] [address] Care Team Providers Care County Engineer Name Role Phone Lazara Beach TELEVISION NEWS [facility] Primary Care Provider + Encounter Details Date Type Department Care Team (Late Contact Info) Description 05/18/2025 Results Follow-Up [facility] Ester Manuel RN Social History Tobacco Use Types Packs/Day Years Used Date Smoking Tobacco: Never Smokeless Tobacco: Never Alcohol Use Standard Drinks/Week Comments Never 0 (1 standard drink = 0.6 oz pur e alcohol) PHQ-2 Answer Date Recorded Patient Health Questionnaire-2 Score 0 06/27/2024 Comments No Sex and Gender Information Value Date Recorded Sex Assigned at Not on file Legal Sex Female 4:20 PM CDT Gender Identity Not on file Sexual Orientation Not on file documented as of this encounter Plan of Treatment Upcoming Encounters Date Type Department Care Team (Late Contact Info) Description 07/17/2025 3:00 PM CDT Office Visit [facility] - Rheumatology [address] [place] [address], [place] [phone] Arun Clements MD [address] [place] [address] 2L DIV [place] [address] 10/19/2025 2:00 PM SEEING EYE DOG TRAINER Office Visit [facility] - Endocrinology [address] [place] [phone] Yayo Quevedo MD [address] [place] [address] 2L [place] [address] documented as of this encounter Visit Diagnoses Not on filedocumented in this encounter Care Teams County Engineer Relationship Specialty Start Date End Date Lazara Beach APRN-TOOLING MECHANIC [address] [place] [phone] PCP - General Nurse Practitioner Family 12/14/24 documented as of this encounter
--- OUTSIDE RECORDS SUMMARY | 2025-06-14 19:57 | XMS_ITS | Clinical Summary ---
Author Organization [facility] [employer] Address [address] [facility] [place] [address] Care Team Providers Care Blue Crabber Name Role Phone Yong Lazaramartinez Olsen APRN-[facility] Primary Care Provider + Source Comments [facility] [employer],non-owned Affiliates and Associated Physician Practices is amultiple site organization consisting of ambulatory clinics and hospital sitesin [place], [place], [place] and [place]. This disclosure is being madepursuant to the Care Everywhere program and may not contain all information available regarding this patient. Last updated 18.[facility] [employer] Allergies Active Allergy Reactions Criticality Noted Date Comments Codeine Nausea and/or Vomiting Low 06/29/2023 Methotrexate HARNESS MENDER Dysfunction High 09/26/2024 HEADACHES , AND EXTREME FATIGUE Sulfa Drugs Unknown 06/29/2023 Ixekizumab Rash Medium 05/08/2025 Large welt around injection site Medications * Be aware that medications may not be up to date on this document. Alwaysverify current medications with the patient. vitamin D, ergocalciferol, (Drisdol) 1.25 MG (46256 UT) capsule Take 1 (one) capsule by mouth every 14 days 3 Active docusate sodium (Colace) 100 MG capsule Take 1 (one) capsule by mouth once daily Active multivitamin daily tablet Take 1 (one) tablet by mouth daily with food Active meloxicam (Mobic) 15 MG tablet TAKE 1 TABLET BY MOUTH DAILY 90 tablet 1 5 Active upadacitinib ER (Rinvoq) 15 MG tabletIndicatio ns:Psoriatic arthritis (HCC) Take 1 (one) tablet by mouth once daily 90 tablet 5 05/30/20 26 Active ixekizumab (Taltz) 80 MG/ML auto-injector penIndications: Psoriatic arthritis (HCC) INJECT 1 PEN (80 MG) UNDER THE SKIN EVERY 4 WEEKS 1 mL 2 5 05/30/20 25 Discontinue d(Tx Complete) Apremilast (Otezla) 30 MGIndications:P soriatic arthritis (HCC) Take 1 (one) tablet by mouth 2 times daily 180 tablet 1 5 05/30/20 25 Discontinue d(Tx Complete) Zoster Vaccine, Recombinant, Adjuvanted (Shingrix) 50 MCG/0.5ML SUSR (RZV)Indication s:Need for shingles vaccine Inject 0.5 mL into muscle once for 1 dose 0.5 mL 5 05/30/20 25 Active Problems Problem Noted Date Diagnosed Date Hyperlipidemia 06/29/2023 06/29/2023 Iron deficiency anemia 06/29/2023 3 Thyroid nodule 06/29/2023 06/29/2023 Overview (06/29/2023): Repeat US in 10/2019 (yearly) Low back pain 12/28/2022 06/29/2023 Flexor tenosynovitis of finger 04/15/2022 0 06/29/2023 Encounters Date Type Department Care Team Description 06/06/2025 Travel 06/05/2025 Telephone [facility] - Rheumatology [address] [place] [phone] Arun Clements MD Imaging 05/31/2025 Telephone [facility] - Rheumatology [address] [place] [phone] Arun Clements MD Medication Prior Auth Request (Rinvoq) 05/30/2025 Telephone [facility] - Rheumatology [address] [place] [phone] Arun Clements MD Follow-up (medication) 05/30/2025 Orders Only [facility] - Rheumatology [address] [place] [phone] Arun Clements MD Psoriatic arthritis (HCC) ; Need for shingles vaccine 05/18/2025 Results Follow-Up Ester Adams RN 05/08/2025 Pharmacist Telephone/Documenta [facility] [address] [place] [phone] Arun Clements MD Medication Monitoring (OTEZLA 30 MG TABLET) 05/03/2025 Telephone [facility] - Rheumatology [address] [place] [address], [place] [phone] Arun Clements MD Medication Prior Auth Request (Otezla) 05/02/2025 Orders Only [facility] - Rheumatology [address] [place] [phone] Arun Clements MD Psoriatic arthritis (HCC) 04/17/2025 3:20 PM CDT Office Visit [facility] - Rheumatology [address] [place] [phone] Arun Clements MD Psoriatic arthritis (HCC) (Primary Dx); Immunosuppression due to drug therapy (HCC); Therapeutic drug monitoring 04/17/2025 Travel from Last 3 Months Family History Medical [...] Sign Reading Time Taken Comments Blood Pressure 126/75 04/17/2025 3:34 PM CDT Pulse 79 04/17/2025 3:34 PM CDT Temperature 36.3 C (97.3 F) 04/17/2025 3:34 PM CDT Respiratory Rate 16 02/08/2024 2:49 PM CDT Oxygen Saturation 96% 01/09/2025 3:08 PM CDT Inhaled Oxygen Concentration - - Weight 89 kg (196 lb 3.2 oz) 04/17/2025 3:34 PM CDT Height 165.1 cm (5' 5) 04/17/2025 3:34 PM CDT Body Mass Index 32.65 04/17/2025 3:34 PM CDT Plan of Treatment Upcoming Encounters Date Type Department Care Team (Late st Contact Info) Description 07/17/2025 3:00 PM CDT Office Visit [facility] - Rheumatology [address] [place] [phone] Arun Clements MD [address] [place] [address] 2L [place] [phone] 10/19/2025 2:00 PM TRACTOR TECHNICIAN Office Visit [facility] - Endocrinology [address] [place] [address], [place] [phone] Yayo Quevedo MD [address] [place] [address] 2L [place] [address] Health Maintenance Due Date Last Done Comments [...] SMEAR 07/27/2020 07/27/2017 SCREENING FOR DIABETES 06/29/2023 DEPRESSION SCREENING 10/11/2024 06/27/2024 INFLUENZA VACCINE (#1) 2025 7, 08/13/2016, 08/07/2015, Additional history exists HIB VACCINE Aged Out No longer eligi ble based on patient's age to complete this topic HPV VACCINE Aged Out No longer eligi ble based on patient's age to complete this topic MENINGOCOCCAL (Group B) VACCINE SHARED DECISION-MAKING Aged Out No longer eligible based on patient's age to complete this topic MENINGOCOCCAL GROUPS A/C/Y/W VACCINE Aged Out No longer eligible based on patient's age to complete this topic Procedures Procedure Name Priority Date/Time Associated Diagnosis Comments IMAGING/RADIOLOGY/XRAY RESULTS ORDER 05/10/2025 IMAGING/RADIOLOGY/XRAY RESULTS ORDER 05/10/2025 IMAGING/RADIOLOGY/XRAY RESULTS ORDER 05/10/2025 IMAGING/RADIOLOGY/XRAY RESULTS ORDER 05/10/2025 from Last 3 Months Results * IMAGING/RADIOLOGY/XRAY RESULTS ORDER (05/10/2025) Only the most recent of4 resultswithin the time period is included. Anatomical Region Laterality Modality Other 05/10/2025 Narrative 05/10/2025 Ordered by an unspecified provider. us Scanned Document IMAGING Final Result from Last 3 Months Insurance [facility] Care Teams Blue Crabber Relationship Specialty Start Date End Date Lazara Beach, HOT KNIFE FOXING CUTTER-GEOTHERMAL INSTALLER [address] [place] [address] [place] [phone] PCP - General Nurse Practitioner Family 12/14/24
--- OUTSIDE RECORDS SUMMARY | 2025-06-14 22:14 | XMS_ITS | Encounter Summary ---
Author Organization [facility] Address [address] [facility] [place] [address] Care Team Providers Care Back End Architect Name Role Phone Lazara Beach CDL COMPANY DRIVER-[employer] Primary Care Provider + Encounter Details Date [...] Office Visit [facility] - Rheumatology [address] [place] [address], [place] [phone] Arun Clements MD [address] [place] [address] 2L [place] [phone] 10/19/2025 2:00 PM CORK INSULATION SETTER Office Visit [facility] - Endocrinology [address] [place] [phone] Yayo Quevedo MD [address] [place] [address] 2L [place] [address] documented as of this encounter Visit Diagnoses Not on filedocumented in this encounter Care Teams Back End Architect Relationship Specialty Start Date End Date Lazara Beach APRN-PERITONEAL DIALYSIS REGISTERED NURSE [address] [place] [phone] PCP - General Nurse Practitioner Family 12/14/24 documented as of this encounter
--- OUTSIDE RECORDS SUMMARY | 2025-06-14 22:14 | XMS_ITS | Clinical Summary ---
Author Organization [facility] Address [address] [place] [address] Care Team Providers Care Clinical Practitioner Name Role Phone Yong Lazaramartinez Olsen APRN-[facility] Primary Care Provider + Source Comments [facility],non-owned Affiliates and Associated Physician Practices is amultiple site organization consisting of ambulatory clinics and hospital sitesin [place], [place], [place]. This disclosure is being madepursuant to the Care Everywhere program and may not contain all information available regarding this patient. Last updated 18.[facility] Allergies Active Allergy Reactions Criticality Noted Date Comments Codeine Nausea and/or Vomiting Low 06/29/2023 Methotrexate [employer] Dysfunction High 09/26/2024 HEADACHES , AND EXTREME FATIGUE Sulfa Drugs Unknown 06/29/2023 Ixekizumab Rash Medium 05/08/2025 Large welt around injection site Medications * Be aware that medications may not be up to date on this document. Alwaysverify current medications with the patient. vitamin D, ergocalciferol, (Drisdol) 1.25 MG (74432 UT) capsule Take 1 (one) capsule by [...] 06/05/2025 Telephone [facility] [address] [place] [phone] Arun Clements MD Imaging 05/31/2025 Telephone [facility] [address] [place] [phone] Arun Clements MD Medication Prior Auth Request (Rinvoq) 05/30/2025 Telephone [facility] [address] [place] [phone] Arun Clements MD Follow-up (medication) 05/30/2025 Orders Only [facility] [address] [place] [phone] Arun Clements MD Psoriatic arthritis (HCC) ; Need for shingles vaccine 05/18/2025 Results Follow-Up Ester Adams RN 05/08/2025 Pharmacist Telephone/Documenta [facility] [address] [place] [phone] Arun Clements MD Medication Monitoring (OTEZLA 30 MG TABLET) 05/03/2025 Telephone [facility] [address] [place] [address], [place] [phone] Arun Clements MD Medication Prior Auth Request (Otezla) 05/02/2025 Orders Only [facility] [address] [place] [phone] Arun Clements MD Psoriatic arthritis (HCC) 04/17/2025 3:20 PM CDT Office Visit [facility] [address] [place] [phone] Arun Clements MD Psoriatic arthritis (HCC) (Primary [...] Office Visit [facility] [address] [place] [phone] Arun Clements MD [address] [place] [address] [address] [place] [phone] 10/19/2025 2:00 PM FERN PICKER Office Visit [facility] Endocrinology [address] [place] [address], [place] [phone] Yayo Quevedo MD [address] [place] [address] [address] [place] [address] Health Maintenance Due Date Last Done Comments [...] [facility] Care Teams Clinical Practitioner Relationship Specialty Start Date End Date Lazara [place], FERMENTER [employer] PROFESSOR [address] [place] [address] [place] [phone] PCP - General Nurse Practitioner Family 12/14/24
--- NOTE | 2025-06-14 22:44 | ED.BACK ---
HPI - Back Pain/Injury General Chief Complaint: Back Pain/Injury Stated Complaint: back numbness/painful Time Seen by Provider: 06/14/25 22:04 History of Present Illness HPI Narrative: Patient is a 50-year-old female who presents to the ER with complaints left-sided back pain. She reports pain started approximately 3 weeks ago. Patient reports she went to urgent care and they gave her steroids and muscle relaxants. She reports the pain continued so she went to her primary care for further evaluation. Patient reports she was prescribed more steroids and tramadol. She reports the pain seems to get better and then worsens again. Patient reports today she bent over and has been experiencing left leg numbness from her hip to her knee. She denies any saddle anesthesia, urinary symptoms, rashes, or incontinence. Patient sources a history of psoriatic arthritis. Related Data Home Medications ?Medication ?Instructions ?Recorded ?Confirmed ?Last Taken ?Type ergocalciferol (vitamin D2) 1,250 1,250 mcg PO .COMPLEX 03/18/21 10/25/24 10/23/24 History mcg (50,000 unit) capsule (Vitamin D2) meloxicam 15 mg tablet 15 mg PO DAILY 10/25/24 10/25/24 10/25/24 History apremilast 30 mg tablet (Otezla) mg PO 05/27/25 Unknown History Allergies Allergy/AdvReac Type Severity Reaction Status Date / Time codeine Allergy Mild Nausea Verified 06/14/25 20:31 Sulfa (Sulfonamide Allergy Unknown Unknown Verified 06/14/25 20:31 Antibiotics) Review of Systems Review of Systems: All systems reviewed & are unremarkable except as noted in HPI and below PMFSH Past Medical History Medical History (normal spontaneous vaginal delivery) x2 Thyroid nodule biopsy 2014 bengin Migraine Elevated cholesterol Surgical History Surgical History History of surgery on wrist X2 History of hysteroscopy 2020 with polyps H/O removal of cyst Family History Family History Father Diabetes mellitus Mother Diabetes mellitus Social History Social History Smoking status: Never smoker Alcohol intake: never Substance use: never Substance use type: does not use Living arrangements: alone Gender identity (if verbalized by the patient): Female Spiritual care concerns: No Exam Narrative: GENERAL: Well appearing, well-nourished, non-toxic, in no acute distress. HEAD: Normocephalic, atraumatic. NECK: Supple. No adenopathy, no masses. RESPIRATORY: Airway patent, respirations nonlabored. Clear to auscultation bilaterally, no rales, rhonchi, wheezing. CARDIOVASCULAR: Regular rate and rhythm without murmurs, rubs, or gallops. Peripheral pulses 2+ and equal bilaterally. ABDOMINAL: Soft, nontender, nondistended, no hepatosplenomegaly. Normoactive BS. MUSCULOSKELETAL: Moves all extremities. Strength/ROM intact without gross deformities. + straight leg test (left side) SKIN: Warm, dry, normal color. No rashes. NEURO: A&O X3. Speech clear. Cranial nerves II-XII intact. No ataxic movements. PSYCHIATRIC: Appropriate mood and affect. Normal interaction. Course Vital Signs Vital signs: Vital Signs Temperature 37.1 C 06/14/25 20:27 Pulse Rate 123 H 06/14/25 20:27 Respiratory Rate 16 06/14/25 20:27 Blood Pressure 124/72 06/14/25 20:27 Pulse Oximetry 97 06/14/25 20:27 Oxygen Delivery Room Air 06/14/25 20:27 Temperature 37.1 C 06/14/25 20:27 Pulse Rate 123 H 06/14/25 20:27 Respiratory Rate 16 06/14/25 20:27 Blood Pressure 124/72 06/14/25 20:27 Pulse Oximetry 97 06/14/25 20:27 Oxygen Delivery Room Air 06/14/25 20:27 MDM - Back Pain/Injury MDM Narrative Medical decision making narrative: Patient is a 50-year-old female who presents to the ER with complaints left-sided back pain. She reports pain started approximately 3 weeks ago. Patient reports she went to urgent care and they gave her steroids and muscle relaxants. She reports the pain continued so she went to her primary care for further evaluation. Patient reports she was prescribed more steroids and tramadol. She reports the pain seems to get better and then worsens again. Patient reports today she bent over and has been experiencing left leg numbness from her hip to her knee. She denies any saddle anesthesia, urinary symptoms, rashes, or incontinence. Patient sources a history of psoriatic arthritis. Labs Ordered: UA Imaging Ordered: CT lumbar Medications Ordered: Decadron 10 mg IM, Toradol 60 mg IM, [place] p.o., lidocaine patch Results: Patient's CT scan indicates no acute fracture or subluxation of the lumbar spine. Well maintained vertebral body heights. Well-preserved lumbar lordosis. No spondylolisthesis. Diagnosis: Sciatica, left back pain Consults: Neurosurgery (outpatient) Patient Education/Shared MDM: Results of lab work and imaging shared with patient. She endorses mild improvement of symptoms following medication administration. Patient strongly advised to follow-up with her PCP and neurosurgery as soon as possible. She will be discharged home with a prescription for steroids and lidocaine patches. Strict return precautions provided. Patient verbalized understanding and is in agreement with plan. Vital signs stable at time of discharge. All questions answered. Differential Diagnosis Differential diagnosis: Likely lumbar radiculopathy, sciatica, strain of lumbar region and pyelonephritis Lab Data Attestation: I reviewed the patient's lab results. Labs: Lab Results 06/15/25 Range/Units 00:05 Urine Color Yellow (Yellow) Urine Appearance Cloudy H (Clear) Urine pH 7.0 (5.0-9.0) Ur Specific Hydes 1.019 (1.001-1.035) Urine Protein Negative (Negative) mg/dL Urine Glucose (UA) Negative (Negative) mg/dL Urine Ketones Negative (Negative) mg/dL Ur Blood (Man) Negative (Negative) Urine Nitrate Negative (Negative) Urine Bilirubin Negative (Negative) Urine Urobilinogen 0.2 (<2.0) mg/dL Add Ur Microanalysis Reviewed Leukocyte Esterase Rfl 2+ H (Negative) VINCENT/UL Urine RBC 0-2 (0-2) /hpf Urine WBC 0-5 (0-3) /hpf Ur Squamous Epith Cells Few (Few) /hpf Urine Bacteria Rare /hpf Urine Casts 0-2 Urine Mucus Present /lpf Imaging Data Attestation: I personally reviewed and interpreted this imaging study as follows: Radiologist's impression: Patient's CT scan indicates no acute fracture or subluxation of the lumbar spine. Well maintained vertebral body heights. Well-preserved lumbar lordosis. No spondylolisthesis. Discharge Plan Discharge Clinical Impression: Back pain, Strain of lumbar region, Sciatica Patient Disposition: Home Condition: Stable Instructions: Antibiotic Form, Sciatica (ED), Acute Low Back Pain (ED), Lower Back Exercises (ED) Additional Instructions: Please return to the ER with any worsening symptoms. Follow-up with primary care provider and Neurosurgery as soon as possible. Take all medications as prescribed, including regularly scheduled medications. You may use lidocaine patches for pain relief. Please continue taking ibuprofen. Patient Language: Greenlandic Prescriptions: New methylprednisolone [Medrol (Slick)] 4 mg tablets,dose pack See Rx Instructions PO .COMPLEX Qty: 21 0RF Rx Instructions: for 6 days lidocaine 5 % adhesive patch,medicated 2 patch topical DAILY Qty: 30 0RF Rx Instructions: leave on most painful area for up to 12 hrs No Action prednisone 50 mg tablet 50 mg PO DAILY 5 Days Qty: 5 0RF cyclobenzaprine 10 mg tablet 10 mg PO TID PRN (Reason: muscle spasm) 7 Days Qty: 21 0RF Otezla 30 mg tablet PO meloxicam 15 mg tablet 15 mg PO DAILY ergocalciferol (vitamin D2) [Vitamin D2] 1,250 mcg (50,000 unit) Capsule 1,250 mcg PO .COMPLEX Rx Instructions: 1,250 mcg orally every two weeks; Follow-up/Referrals: Sarah Wilks MD [Physician, Neurosurgery] Referral Note: neurosurgery Yong,Lazara Thomson NP [Primary Care Provider, Unknown] Stand Alone Forms: Work/School Release IP Time of Disposition: 01:09
--- NOTE | 2025-06-14 22:55 | ECG_ITS ---
Test Date: 2025-06-14 22:59:45 Measurements Intervals [place] Rate: 97 P: 60 OR: 142 QRS: 45 QRSD: 90 T: 43 QT: 330 QTc: 420 Interpretive Statements SINUS RHYTHM POSSIBLE INFERIOR MYOCARDIAL INFARCTION , PROBABLY OLD [30 ms Q WAVE IN II/aVF] No previous ECG available for comparison Electronically Signed On 06-15-2025 12:33:19 CDT by Ki Briones M.D.
[2025-06-14] MEDS: KETOROLAC (*BKC) 60 MG/2 ML VIAL IM (23:33)
[2025-06-14] MEDS: dexAMETHasone SOD PHOS INJ 10 MG/ML 1 ML VIAL IM (23:34)
[2025-06-15] VITALS (7 sets, daily range): BP systolic 123–128; BP diastolic 67–69; O2SAT 94–97
[2025-06-15 00:19] LABS: Add Urine Microscopic? YES; Appearance Urine Cloudy (Clear); Glucose Urine UA Negative (Negative); Leukocyte Esterase Ur 2+ LEU/UL (Negative); Need Manual Microscopic Reviewed; Nitrate Urine Negative (Negative); Non Pathogenic Casts 0-2; Specific Grav Ur 1.019 (1.001-1.035)
[2025-06-15] MEDS: LIDOCAINE 5% PATCH 1 PATCH TRANSDERM (01:51)
== END 2025-06-15 02:22 | disposition home or self-care (01) ==
PROVIDERS: Emergency Provider Registered Nurse; PCP Nurse Practitioner Family
DX: S39.012A Strain of muscle, fascia and tendon of lower back, initial encounter (principal); M54.42 Lumbago with sciatica, left side; R94.31 Abnormal electrocardiogram [ECG] [EKG]; L40.50 Arthropathic psoriasis, unspecified; X50.9XXA Other and unspecified overexertion or strenuous movements or postures, initial encounter
CPT/HCPCS: 72131; 81001; 87086; 93005; 96372; 99284; A9270; J1100; J1885